=== PATIENT | female | born 1970 | race Caucasian/White ===

== ENCOUNTER 2023-10-24 08:51 | Emergency (ER) | payer BC, SELFPAY ==
--- NOTE | ~2023-10-24 | CT_ITS ---
EXAMINATION: CT HEAD WITHOUT CONTRAST CLINICAL INFORMATION: Dizziness COMPARISON: None available. TECHNIQUE: Contiguous axial imaging was performed from the skull base to vertex without intravenous administration of contrast. This CT examination was performed using dose optimization techniques as appropriate, variously including the following: *Automated exposure control *Adjustment of mA and/or kV according to patient size (this includes techniques or standardized protocols for targeted exams where dose is matched to indication/reason for exam; i.e. extremities or head) *Use of iterative reconstruction technique DLP: 638 mGy-cm FINDINGS: Ventricles, sulci and cisterns are normal. There is no midline shift, no abnormal intra- or extra- axial fluid accumulation. Mauricio and white matter differentiation is normal. Bone window images show no evidence of skull fracture. CT/CT head/brain wo IV con IMPRESSION: 1. Normal CT scan of the brain. 2. No intracranial hemorrhage or skull fracture is seen. 3. No evidence of space occupying lesion could be found. 4. The current plain CT scan of the brain shows no diagnostic evidence of acute cerebral infarction.
[2023-10-24 09:08] VITALS: BP 128/78; PULSE 74; RESP 15; TEMP 36.7; BMI 35.7
--- NOTE | 2023-10-24 09:33 | ECG_ITS ---
Test Reason : DIZZINESS Blood Pressure : / mmHG Vent. Rate : 064 BPM Atrial Rate : 064 BPM P-R Int : 138 ms QRS Dur : 076 ms QT Int : 426 ms P-R-T Axes : 001 012 023 degrees QTc Int : 439 ms Normal sinus rhythm Low voltage QRS Borderline ECG When compared with ECG of 10-MAY-2015 20:13, Vent. rate has decreased BY 55 BPM Referred By: Alisson Talavera Electronically Signed By:BRITTON TELLES MD
--- OUTSIDE RECORDS SUMMARY | 2023-10-24 09:34 | XMS_ITS | Continuity of Care Document ---
Author Organization [facility] José Antonio Thomas Address [address] [place] [address]- Care Team Providers Care Supervisor Salvage Name Role Phone Francisco ESPINOSA, Paulina Vega Primary Care Physician Encounter [facility] Date(s): 01/09/23 - 02/08/23 [facility] Adult [address] [place] [address]- Allergies, Adverse Reactions, Alerts Substance Reaction Severity Status Peanuts Active Immunizations Given and Recorded Vaccine Date Status Refusal Reason influenza virus vaccine, inactivated 01/07/22 Kun rded influenza virus vaccine, inactivated 11/29/20 Kun rded influenza virus vaccine, inactivated 01/05/20 Kun rded influenza virus vaccine, inactivated 01/11/19 Kun rded influenza virus vaccine, inactivated 01/04/18 Kun rded influenza virus vaccine, inactivated 12/28/16 Kun rded influenza virus vaccine, inactivated 03/27/14 Kun rded SARS-CoV-2 (COVID-19) mRNA BNT-162b2 vac 01/14/21 Recorded SARS-CoV-2 (COVID-19) mRNA BNT-162b2 vac 07/10/20 Recorded SARS-CoV-2 (COVID-19) mRNA BNT-162b2 vac 06/17/20 Recorded pneumococcal 23-valent vaccine 10/08/12 Recorded tetanus/diphtheria/pertussis, acel(Tdap) 10/08/12 Recorded tetanus-diphtheria toxoids (Td) 03/20/99 Recorded Medications albuterol CFC free 90 mcg/inh inhalation aerosol 2, puffs, Inhalation, 4 times a day, PRN, # 8 Gm, Refills 1, Tot. Refills 1, Maintenance, 02/01/23 10:54:00 EST, Aerosol, Route to Pharmacy Electronically, [id number], [facility], 155, cm, 02/01/23 10:48:00 EST,... Start Date: 02/01/23 Status: Ordered amLODIPine 10 mg oral tablet 10 mg, 1, tablet, By Mouth, Daily, # 90 tablet, Refills 3, Tot. Refills 3, Maintenance, 11/07/22 15:09:00 EDT, Route to Pharmacy Electronically, [facility], Partial fill upon patient request if the prescription is for a schedule II opioi... Start Date: 11/07/22 Status: Ordered Aspirin Enteric Coated 325 mg oral delayed release tablet 1 tablet = 325 mg, By Mouth, Daily, as directed take 1 tablet daily for 4 weeks. START THIS MEDICATION ON POST OP DAY 1, 0 Refills, Maintenance, 12/29/21 7:21:00 EDT, Partial fill upon patient request if the prescription is for a schedule II opioid drug. Start Date: 12/29/21 Status: Ordered Calcium And Vitamin D Combination = 600 mg, By Mouth, 2 times a day, 0 Refills, Maintenance, 12/21/21 13:39:00 EDT, Partial fill uponpatient request if the prescription is for a schedule II opioid drug. Start Date: 12/21/21 Status: Ordered escitalopram 20 mg oral tablet 1 tablet = 20 mg, By Mouth, Daily, 0 Refills, Maintenance, 11/07/22 14:13:00 EDT, Partial fill uponpatient request if the prescription is for a schedule II opioid drug. Start Date: 11/07/22 Status: Ordered gabapentin 300 mg oral capsule 300 mg, 1, capsule, By Mouth, 3 times a day, # 270 capsule, Refills 0, Maintenance, 01/24/19 4:50:20 EST Start Date: 01/24/19 Status: Ordered LaMICtal ODT 50 mg oral tablet, disintegrating 1 tablet = 50 mg, By Mouth, 2 times a day, 0 Refills, Maintenance, 01/24/19 13:21:14 EST Start Date: 01/24/19 Status: Ordered levothyroxine 0.025 mg oral tablet 1 tablet = 25 mcg, By Mouth, Daily, # 90 tablet, 3 Refills, Maintenance, 11/07/22 15:08:00 EDT, Tablet, [facility], Partial fill upon patient request if the prescription is for a schedule II opioid drug., 155, cm, 11/07/22 13:56:00 EDT,... Start Date: 11/07/22 Status: Ordered loratadine 10 mg oral tablet 10 mg, 1, tablet, By Mouth, Daily, # 90 tablet, Refills 3, Tot. Refills 3, Maintenance, 11/07/22 15:10:00 EDT, Route to Pharmacy Electronically, [facility], Partial fill upon patient request if the prescription is for a schedule II opioi... Start Date: 11/07/22 Status: Ordered Multivitamin Tablet 1 tablet, By Mouth, Daily, 0 Refills, Maintenance, 01/27/19 11:28:49 EST, Tablet Start Date: 01/27/19 Status: Ordered Naproxen = 500 mg, By Mouth, twice a day 1 TAB TWICE A DAY FOR 5 DAYS, 0 Refills, Maintenance, 12/29/21 7:21:00 EDT, Partial fill upon patient request if the prescription is for a schedule II opioid drug. Start Date: 12/29/21 Status: Ordered nicotine 2 mg oral transmucosal lozenge 1 lozenge = 2 mg, By Mouth, Every 2 hours, # 360 lozenge, 1 Refills, Maintenance, 02/01/23 10:30:00EST, [facility], Partial fill upon patient request if the prescription is for a schedule II opioid drug., 1 lozenge By Mouth Every 2 hour... Start Date: 02/01/23 Status: Ordered pantoprazole 40 mg oral delayed release tablet 1 tablet = 40 mg, By Mouth, Daily, # 90 tablet, 3 Refills, Maintenance, 11/07/22 15:10:00 EDT, EC Tablet, 155, cm, 11/07/22 13:56:00 EDT, Height, 81.5, kg, 12/29/21 6:56:00 EDT, Dry Weight Start Date: 11/07/22 Status: Ordered traZODone 50 mg oral tablet 50 mg, 1, tablet, By Mouth, Daily at bedtime, # 30 tablet, Refills 0, Maintenance, 01/24/19 4:51:05EST Start Date: 01/24/19 Status: Ordered Vitamin B12 = 1,000 mcg, By Mouth, Daily, 0 Refills, Maintenance, 02/01/23 10:01:00 EST, Partial fill upon patient request if the prescription is for a schedule II opioid drug. Start Date: 02/01/23 Status: Ordered Problem List Condition Confirmation Course Effective Dates Status H ealth Status Informant Alcohol dependence Confirmed Active Obesity (BMI 30-39.9) Confirmed Active Chronic pain Confirmed Active Ovarian cyst Confirmed Active Depression Confirmed Active GERD (gastroesophageal reflux disease) Confirmed Active Genital warts Confirmed Active History of suicidal ideation Confirmed Active Hyperlipidemia Confirmed Active Hypertension Confirmed Active Hypothyroidism Confirmed Active Major depression Confirmed Active PTSD (post-traumatic stress disorder) Confirmed Active Schizo affective schizophrenia Confirmed Active Severe obesity (BMI 35.0-39.9) with comorbidity Confirmed Active Tobacco abuse Confirmed Active Social History Social History Type Response Smoking Status 10 or more cigarette s (1/2 pack or more)/day in last 30 days; Other: 1pack per day, 40 years. 40 pack years; entered on: 12/14/22 Sex Patient Care team information Care Team Personnel Name: Paulina Singh NP Position: [facility] PCO Associate Professional Member Role: PCP Address: Address: [address] [place] [id number]- Care Team Related Persons Name: ESTEFANIA FISHMAN Name: NAV DE LA VEGA Address: home [address] [place] [id number] Name: LENO DE LA VEGA
--- OUTSIDE RECORDS SUMMARY | 2023-10-24 09:34 | XMS_ITS | Continuity of Care Document ---
Author Organization [facility] Address [address] [place] [address]- Care Team Providers Care Neckties Painter Name Role Phone Francisco ESPINOSA, Paulina Vega Primary Care Physician Encounter [facility] Date(s): 09/15/23 - 10/15/23 [facility] [address] [place] [address] Allergies, Adverse Reactions, Alerts Substance Reaction Severity [...] 10:54:00 EST, Aerosol, Route to Pharmacy Electronically, [id number], [facility], 155, cm, [...] II opioi... Start Date: 11/07/22 Status: Ordered Calcium And Vitamin D Combination [...] opioid drug. Start Date: 11/07/22 Status: Ordered fluticasone 50 mcg/inh nasal spray 1 sprays = 50 mcg, Nares, Both, Daily in AM, 0 Refills, Maintenance, 02/17/23 13:26:00 EST, [place], Partial fill upon patient request if the prescription is for a schedule II opioid drug. Start Date: 02/17/23 Status: Ordered LaMICtal ODT 50 mg oral tablet, disintegrating 1 tablet = 50 mg, By Mouth, 2 times a day, 0 Refills, Maintenance, 01/24/19 13:21:14 EST Start Date: 01/24/19 Status: Ordered levothyroxine 0.025 mg oral tablet 1 tablet = 25 mcg, By Mouth, Daily, # 90 tablet, 3 Refills, Maintenance, 11/07/22 15:08:00 EDT, Tablet, [facility], Partial fill [...] II opioi... Start Date: 11/07/22 Status: Ordered Mask Rx (reliable respiratory) Mask Rx (reliable respiratory), See Instructions, # 1 each, Refills 11, Tot. Refills 11, Maintenance, DreamWear Nasal Mask FitPack with Headgear - [facility] [employer] dx: NENA G47.33, 09/26/23 12:38:00 EDT, Supply Start Date: 09/26/23 Status: Ordered Multivitamin Tablet 1 tablet, By Mouth, Daily, 0 Refills, Maintenance, 01/27/19 11:28:49 EST, Tablet Start Date: 01/27/19 Status: Ordered pantoprazole 40 mg oral delayed [...] 01/24/19 4:51:05EST Start Date: 01/24/19 Status: Ordered triamcinolone 0.1% topical cream See Instructions, Apply to left ear and below left eye two times a day andd then wash hands., # 30 Gm, 0 Refills, Maintenance, 10/05/23 8:52:00 EDT, [facility], Partial fill upon patient request if the prescription is for a schedule II o... Start Date: 10/05/23 Status: Ordered Vitamin B12 = 1,000 mcg, [...] (1/2 pack or more)/day in last 30 days entered on: 02/17/23 Sex Patient Care team information Care Team Personnel Name: Paulina Singh NP Position: S PCO Associate Professional Member Role: PCP Address: Address: [address] [place] [address]- Care Team Related Persons Name: ESTEFANIA FISHMAN Address: home [address] [place] [address] Name: NAV DE LA VEGA Address: home [address] [place] [address] Name: LENO DE LA VEGA
--- OUTSIDE RECORDS SUMMARY | 2023-10-24 09:34 | XMS_ITS | Continuity of Care Document ---
Author Organization [facility] José Antonio Thomas lt Address [address] [place] [address]- Care Team Providers Care Legal Job Titles Name Role Phone Francisco ESPINOSA, Paulina Vega Primary Care Physician Encounter [facility] Date(s): 11/07/22 - 11/14/22 [facility] [place] Adult [address] [place] [address]- Attending Physician: Paulina Singh NP Referring Physician: Alli ACE, Samuel Martínez Allergies, Adverse Reactions, Alerts Substance Reaction Severity [...] Recorded tetanus-diphtheria toxoids (Td) 03/20/99 Recorded Medications amLODIPine 10 mg oral tablet 10 mg, 1, tablet, By Mouth, Daily, # 90 tablet, Refills 3, Tot. Refills 3, Maintenance, 11/07/22 15:09:00 EDT, Route to Pharmacy Electronically, [email or web address], Partial fill upon patient request [...] opioid drug. Start Date: 12/29/21 Status: Ordered pantoprazole 40 mg oral delayed [...] 01/24/19 4:51:05EST Start Date: 01/24/19 Status: Ordered Problem List Condition Confirmation Course Effective Dates Status Health St atus Informant Alcohol dependence Confirmed Active Chronic pain Confirmed Active Depression Confirmed Active GERD (gastroesophageal reflux disease) Confirmed Active Hypertension Confirmed Active Severe obesity (BMI 35.0-39.9) with comorbidity Confirmed Active Vital Signs Most recent to oldest [Reference Range]: 1 Height 155 cm (11/07/22 1:56 PM) Weight 87.2 kg (11/07/22 1:56 PM) Oxygen Saturation [94-100 %] 98 % (11/07/22 1:56 PM) Pulse Rate [55-90 bpm] 86 bpm (11/07/22 1:56 PM) Body Mass Index [18.5-24.99 kg/m2] 36.3 kg/m2 *>HHI* (11/07/22 1:56 PM) Blood Pressure [90-138/55-84 mm Hg] 106/ 71mm Hg (11/07/22 1:56 PM) Mode of Delivery (Oxygen) Room air (11/07/22 1:56 PM) Blood pressure sites Arm, left (11/07/22 1:56 PM) Social History Social History Type Response Smoking Status 10 or more cigarette s (1/2 pack or more)/day in last 30 days entered on: 01/25/19 Sex Patient Care team information Care Team Personnel Name: Francisco ESPINOSA, Paulina Vega Position: [facility] PCO Associate Professional Member Role: PCP Address: Address: [address] [place] [address]- Care Team Related Persons Name: ESTEFANIA FISHMAN Name: NAV DE LA VEGA Address: home [address] [place] [address] Name: LENO DE LA VEGA
--- OUTSIDE RECORDS SUMMARY | 2023-10-24 09:34 | XMS_ITS | Continuity of Care Document ---
Author Organization [facility] Evaristo Chou Thomas lt Address [address] [place] [address]- Care Team Providers Care Veneer Stock Layer Name Role Phone Francisco ESPINOSA, Paulina Vega Primary Care Physician [phone] Encounter [facility] [place] Date(s): 10/05/23 - 10/12/23 [facility] Evaristo Eidley Adult [address] [place] [address]- Attending Physician: Vaibhav Mon MD Referring Physician: Paulina Singh NP Allergies, Adverse Reactions, Alerts Substance Reaction Severity [...] 10:54:00 EST, Aerosol, Route to Pharmacy Electronically, [id number], [facility], 155, cm, [...] AM, 0 Refills, Maintenance, 02/17/23 13:26:00 EST, [place], Partial fill upon patient request if the [...] comorbidity Confirmed Active Tobacco abuse Confirmed Active Vital Signs Most recent to oldest [Reference Range]: 1 Height 155 cm (10/05/23 8:29 AM) Weight 89.2 kg (10/05/23 8:29 AM) Oxygen Saturation [94-100 %] 97 % (10/05/23 8:29 AM) Pulse Rate [55-90 bpm] 98 bpm *H* (10/05/23 8:29 AM) Body Mass Index [18.5-24.99 kg/m2] 37.13 kg/m2 *>HHI* (10/05/23 8:29 AM) Blood Pressure [90-138/55-84 mm Hg] 123/ 73mm Hg (10/05/23 8:29 AM) Temperature [96.8-100.4 DegF] 98.1 DegF (10/05/23 8:29 AM) Blood pressure sites Arm, left (10/05/23 8:29 AM) Temperature Route Oral (10/05/23 8:29 AM) Weight Obtained Via Standing scale (10/05/23 8:29 AM) Social History Social History Type Response Smoking Status 10 or more cigarette s (1/2 pack or more)/day in last 30 days entered on: 02/17/23 Sex Note * Clara Kessler: PERFORM Event Display: Patient Education/Instruction Authored Date: [id number] Ambulatory Adult Visit Summary [facility] [place] [facility] [address] [place], [place] [id number] Name: MARIO DE LA VEGA : 1970?? Visit: 10/05/2023 08:17?? Ambulatory Visit Instructions ?? Your Care Team Primary Care Provider Francisco ESPINOSA, Paulina Vega? This Visit Provider Vaibhav Mon MD Your Diagnosis Blepharitis Vitals Signs Temperature: 98.1 DegF Height: 155 cm Pulse Rate:??98 bpm??High Weight: 89.2 kg Systolic Blood Pressure: 123 mm Hg Body Mass Index:??37.13 kg/m2??Critical Diastolic Blood Pressure: 73 mm Hg Body surface area: 1.96 Oxygen Saturation: 97 % ?? What to do next Scheduled Follow-Up Appointments Monday 3:20 PM EDT ?? With: Lexi ACE, Bryon Valdez Where: [facility] [address] [place] [address]- Status: Pending Medications The list below reflects the information in our records and provided by you today along with any changes made during this visit. Please continue your medications until treatment is completed or stopped by your provider. If this is different from the information you have or there are other questions,please contact the prescribing provider. What How Much When Why Instructions New Triamcinolone Topical (triamcinolone 0.1% topical cream) See instructions Apply to left ear and below left eye two times a day andd then wash hands. ?? Pickup at [facility] Changed Durable Medical Equipment (Mask Rx (reliable respiratory)) See instructions DreamWear Nasal Mask FitPack with Headgear - [facility] dx: NENA G47.33 ?? Unchanged Albuterol (albuterol CFC free 90 mcg/ inh inhalation aerosol) 2 puff(s) Inhalation 4 times a day as needed for as needed for wheezing Unchanged Amlodipine (amLODIPine 10 mg oral tablet) 1 tab(s) Oral Daily Hypertension Unchanged Calcium And Vitamin D Combination 600 Milligram Oral Twice a day Unchanged Cyanocobalamin (Vitamin B12) 1,000 Microgram Oral Daily Unchanged Escitalopram (escitalopram 20 mg oral tablet) 1 tab(s) Oral Daily Unchanged Fluticasone Nasal (fluticasone 50 mcg/ inh nasal spray) 1 spray(s) Nares, Both Daily in the morning Unchanged Lamotrigine (LaMICtal ODT 50 mg oral tablet, disintegrating) 1 tab(s) Oral Twice a day Unchanged Levothyroxine (levothyroxine 0.025 mg oral tablet) 1 tab(s) Oral Daily Hypothyroidism Unchanged Loratadine (loratadine 10 mg oral tablet) 1 tab(s) Oral Daily Unchanged Multivitamin (Multivitamin Tablet) 1 tab(s) Oral Daily Unchanged Pantoprazole (pantoprazole 40 mg oral delayed release tablet) 1 tab(s) Oral Daily GERD without esophagitis Unchanged Trazodone (traZODone 50 mg oral tablet) 1 tab(s) Oral Daily at Bedtime Pharmacy Information [facility]: [address] [place], [place] [id number] [phone] ?? What How Much When Comments Stop Taking Aspirin (Aspirin Enteric Coated 325 mg oral delayed release tablet) 1 tab(s) Oral Daily as directed take 1 tablet daily for 4 weeks. START THIS MEDICATION ON POST OP DAY 1 ?? Stop Taking Gabapentin (gabapentin 300 mg oral capsule) 1 capsule Oral 3 times a day Stop Taking Nicotine (nicotine 2 mg oral transmucosal lozenge) 1 lozenge(s) Oral Every 2 hours Medications and Immunizations Administered Medications Given During Visit No medications given during this visit.?? Allergies (NKA means No Known Allergies) Peanuts Common Emergency Awareness Tips IS IT A STROKE? Act FAST and Check for these signs: FACE Does the face look uneven? ARM Does one arm drift down? SPEECH Does their speech sound strange? TIME Call at any sign of stroke ?? Heart Attack Signs Chest discomfort: Most heart attacks involve discomfort in the center of the chest and lasts more than a few minutes, or goes away and comes back. It can feel like uncomfortable pressure, squeezing, fullness or pain. Discomfort in upper body: Symptoms can include pain or discomfort in one or both arms, back, neck, jaw or stomach. Shortness of breath: With or without discomfort. Other signs: Breaking out in a cold sweat, nausea, or lightheaded. Remember, MINUTES DO MATTER. If you experience any of these heart attack warning signs, call to get immediate medical attention! ?? Smoking can increase your chances of developing chronic health problems and can cause harmful effects to other family members in your house. If you smoke, you are strongly encouraged to quit. Please call [facility] at [phone] or [phone] ([phone]) or log in to [email or web address] for referrals to smoking cessation programs. ?? The National Suicide Prevention Hotline is available 10/10 if you or someone you know needs to find a reason to keep living. By calling 3-626-361-mucz (1772) you'll be connected to a skilled, trained counselor at a crisis center in your area. [facility] Portal You can view and manage your care through the patient portal or by using a health care teja of your choosing. [employer] is a website that allows you to securely view your medical information including your hospital discharge summary, office visit summaries, medications and follow-up visits. You can also request appointments, renew medications, and request access to your medical information using a health care teja of your choosing, or just ask a question. You can enroll at [email or web address] or register during your next office visit. [facility], in keeping with [facility] guidance, no longer requires face masks for staff, patientsor visitors in most situations. Similiar to time spent indoors at other locations, there is the chance that you were exposed to repiratory viruses during your time with us (such as flu or COVID-19). If you develop symptoms concerning for a viral respiratory infection, please seek testing (and treatment if indicated) from your medical provider or home test kit. ?? Disclaimer: The information provided is of a general nature and is intended to be used in conjunction with the recommendations and advice of your health care practitioner. Every effort has been made to ensure that the information provided is accurate and complete at the time it is provided to you however, as your needs change, or, as new information becomes available, different or additional instructions may be required. ?? If you have questions, please consult with your primary care provider or pharmacist, as appropriate. This information is not intended to serve as substitution for assessment and evaluation by a qualified health care provider. If you do not have a primary care provider, you may find a [facility] provider by calling [facility] Link at [phone]. Patient Care team information Care Team Personnel Name: Paulina Singh NP Position: S PCO Associate Professional Member Role: PCP Address: Address: [address] [place] [phone]- [place] Care Team Related Persons Name: ESTEFANIA FISHMAN Address: home [address] [place] [address] Name: NAV DE LA VEGA Address: home [address] [place] [address] Name: LENO DE LA VEGA
--- OUTSIDE RECORDS SUMMARY | 2023-10-24 09:34 | XMS_ITS | Continuity of Care Document ---
Author Organization [facility] Flomot Thomas lt Address [address] [place] [address]- Care Team Providers Care Daycare Teacher Name Role Phone Francisco ESPINOSA, Paulina Vega Primary Care Physician [phone] Encounter [facility] [place] Date(s): 03/23/23 - 04/22/23 [facility] Adult [address] [place] [address]- Allergies, Adverse Reactions, Alerts Substance Reaction Severity [...] 10:54:00 EST, Aerosol, Route to Pharmacy Electronically, [id number], [facility], 155, cm, [...] AM, 0 Refills, Maintenance, 02/17/23 13:26:00 EST, [place], Partial fill upon patient request if the prescription is for a schedule II opioid drug. Start Date: 02/17/23 Status: Ordered gabapentin 300 mg oral capsule [...] EST, Tablet Start Date: 01/27/19 Status: Ordered nicotine 2 mg oral transmucosal lozenge 1 lozenge = 2 mg, By Mouth, Every 2 hours, # 360 lozenge, 1 Refills, Maintenance, 02/01/23 10:30:00EST, [facility], Partial fill [...] Team Personnel Name: Paulina Singh NP Position: [facility] PCO Associate Professional Member Role: PCP Address: Address: [address] [place] [address]- Care Team Related Persons Name: ESTEFANIA FISHMAN Name: NAV DE LA VEGA Address: home [address] [place] [address] Name: LENO DE LA VEGA
--- OUTSIDE RECORDS SUMMARY | 2023-10-24 09:34 | XMS_ITS | Continuity of Care Document ---
Author Organization [facility] José nAtonio Thomas lt Address [address] [place] [address]- Care Team Providers Care Glue Cook Name Role Phone Francisco ESPINOSA, Paulina Vega Primary Care Physician [place] [facility] [place] 07[place]23 [facility] Adult [address] [place] [address]- Allergies, Adverse Reactions, Alerts Substance Reaction Severity [...] 10:54:00 EST, Aerosol, Route to Pharmacy Electronically, [id number], [facility], 155, cm, [...] opioid drug. Start Date: 12/21/21 Status: Ordered CPAP Machine See Instructions, # 1 each, Refills 11, Tot. Refills 11, Maintenance, E0601 AutoCPAP 10 to 20 cm H20 with compliance data A4604 Heated Tubing/Climate line or A7037 Tubing A7038 or A7039 Filters N0042Apsp strap A7046 Humidifier Chamber A703... Start Date: 07/25/23 Status: Ordered escitalopram 20 mg oral tablet 1 tablet = 20 mg, By Mouth, Daily, 0 Refills, Maintenance, 11/07/22 14:13:00 EDT, Partial fill uponpatient request if the prescription is for a schedule II opioid drug. Start Date: 11/07/22 Status: Ordered fluticasone 50 mcg/inh nasal spray 1 sprays = 50 mcg, Nares, Both, Daily in AM, 0 Refills, Maintenance, 02/17/23 13:26:00 EST, [place], Partial fill upon patient request if the [...] Associate Professional Member Role: PCP Address: Address: [address] [place] [address]- Care Team Related Persons Name: ESTEFANIA FISHMAN Address: home [address] [place] [address] Name: NAV DE LA VEGA Address: home [address] [place] [address] Name: LENO DE LA VEGA
--- OUTSIDE RECORDS SUMMARY | 2023-10-24 09:34 | XMS_ITS | Continuity of Care Document ---
Author Organization [facility] José Antonio Thomas Address [address] [place] [address]- Care Team Providers Care Ware Carrier Name Role Phone Francisco ESPINOSA, Paulina Vega Primary Care Physician [place] [facility] [place] 11/[place]/22 [facility] Adult [address] [place] [address]- Allergies, Adverse Reactions, Alerts Substance Reaction Severity [...] obesity (BMI 35.0-39.9) with comorbidity Confirmed Active Social History Social History Type Response Smoking Status 10 or more cigarette s (1/2 pack or more)/day in last 30 days entered on: 01/25/19 Sex Patient Care team information Care Team Personnel Name: Paulina Singh NP Position: S PCO Associate Professional Member Role: PCP Address: Address: [address] [place] [address]- Care Team Related Persons Name: ESTEFANIA FISHMAN Name: NAV DE LA VEGA Address: home [address] [place] [address] Name: LENO DE LA VEGA
--- OUTSIDE RECORDS SUMMARY | 2023-10-24 09:34 | XMS_ITS | Continuity of Care Document ---
Author Organization [facility] Address [address] [place] [address]- Care Team Providers Care Call Center Manager Name Role Phone Paulina Singh NP Primary Care Physician [phone] Encounter [facility] [place] Date(s): 04/18/23 - 05/18/[address] [address] Allergies, Adverse Reactions, Alerts Substance Reaction [...] 10:54:00 EST, Aerosol, Route to Pharmacy Electronically, [id number], [facility], 155, cm, [...] AM, 0 Refills, Maintenance, 02/17/23 13:26:00 EST, [place], Partial fill upon patient request if the [...] Personnel Name: Francisco ESPINOSA, Paulina Vega Position: [facility] PCO Associate Professional Member Role: PCP Address: Address: [address] [place] [address]- Care Team Related Persons Name: ESTEFANIA FISHMAN Name: NAV DE LA VEGA Address: home [address] [place] [address] Name: LENO DE LA VEGA
--- OUTSIDE RECORDS SUMMARY | 2023-10-24 09:34 | XMS_ITS | Continuity of Care Document ---
Author Organization [facility] Address [address] [place] [address] [place] [address]- Care Team Providers Care Farmworkers Name Role Phone Francisco JESÚS, Paulina Vega Primary Care Physician En[place] [facility] [place] Date(s): 02/01/23 - 03/03/23 [facility] [address] [place] [address] [place] [id number] Attending Physician: Admtr, Ar8 Admitting Physician: Admtr, Ar8 Referring Physician: Admtr, Ar8 Allergies, Adverse Reactions, Alerts Substance Reaction Severity [...] 10:54:00 EST, Aerosol, Route to Pharmacy Electronically, [id number], [facility], 155, cm, 02/01/23 10:48:00 EST,... Start Date: 02/01/23 Status: Ordered amLODIPine 10 mg oral tablet 10 mg, 1, tablet, By Mouth, Daily, # 90 tablet, Refills 3, Tot. Refills 3, Maintenance, 11/07/22 15:09:00 EDT, Route to Pharmacy Electronically, [facility], Partial fill upon patient request [...] AM, 0 Refills, Maintenance, 02/17/23 13:26:00 EST, [place], Partial fill upon patient request if the [...] Team Personnel Name: Paulina Singh NP Position: [facility] PCO Associate Professional Member Role: PCP Address: Address: [address] [place] [address]- Care Team Related Persons Name: ESTEFANIA FISHMAN Name: NAV DE LA VEGA Address: home [address] [place] [address] Name: LENO DE LA VEGA
--- OUTSIDE RECORDS SUMMARY | 2023-10-24 09:34 | XMS_ITS | Continuity of Care Document ---
Author Organization [facility] Address [address] [place] [address]- Care Team Providers Care Studio Sales Associate Name Role Phone Paulina Singh NP Primary Care Physician [phone] Encounter [facility] Date(s): 01/11/23 - 03/23/23 [facility] [address] [place] [address] Attending Physician: Lianne Mcgregor MD, Yves Philip Admitting Physician: Yves Cuevas MD Referring Physician: Paulina Singh NP Allergies, [...] 10:54:00 EST, Aerosol, Route to Pharmacy Electronically, [id number], [facility], 155, cm, [...] AM, 0 Refills, Maintenance, 02/17/23 13:26:00 EST, [place], Partial fill upon patient request if the [...] Team Personnel Name: Paulina Singh NP Position: [facility] PCO Associate Professional Member Role: PCP Address: Address: [address] [place] [address]- Care Team Related Persons Name: ESTEFANIA FISHMAN Name: NAV DE LA VEGA Address: home [address] [place] [address] Name: LENO DE LA VEGA
--- OUTSIDE RECORDS SUMMARY | 2023-10-24 09:34 | XMS_ITS | Continuity of Care Document ---
Author Organization [facility] Address [address] [place] [address]- Care Team Providers Care Camera Assembler Name Role Phone Francisco ESPINOSA, Paulina Vega Primary Care Physician [place] [facility] [place] 02/08/23 [facility] Adult [address] [place] [address]- Allergies, Adverse Reactions, Alerts Substance Reaction Severity [...] 10:54:00 EST, Aerosol, Route to Pharmacy Electronically, [id number], [facility], 155, cm, [...] Maintenance, 11/07/22 15:08:00 EDT, Tablet, [facility], Partial fill upon patient request if the prescription is for a schedule II opioid drug., 155, cm, 11/07/22 13:56:00 EDT,... Start Date: 11/07/22 Status: Ordered loratadine 10 mg oral tablet 10 mg, 1, tablet, By Mouth, Daily, # 90 tablet, Refills 3, Tot. Refills 3, Maintenance, 11/07/22 15:10:00 EDT, Route to Pharmacy Electronically, [facility], Partial fill upon patient request [...] 1 Refills, Maintenance, 02/01/23 10:30:00EST, [facility], Partial fill upon patient request [...] Team Personnel Name: Paulina Singh NP Position: [facility] PCO Associate Professional Member Role: PCP Address: Address: [address] [place] [address]- Care Team Related Persons Name: ESTEFANIA FISHMAN Name: NAV DE LA VEGA Address: home [address] [place] [address] Name: LENO DE LA VEGA
--- OUTSIDE RECORDS SUMMARY | 2023-10-24 09:34 | XMS_ITS | Continuity of Care Document ---
Author Organization [facility] Address [address] [place] [address]- Care Team Providers Care Wringer Machine Operator Name Role Phone Francisco ESPINOSA, Paulina Gary Primary Care Physician [place] [facility] [place] [id number] Date(s): 02/17/23 - 02/24/23 [facility] [address] [place], [place] [address] Attending Physician: Lj ACE, Wesley Kent Referring Physician: Santana ACE, Dorian Mckeon Allergies, Adverse Reactions, Alerts Substance Reaction Severity [...] 10:54:00 EST, Aerosol, Route to Pharmacy Electronically, [id number], [facility], 155, cm, [...] AM, 0 Refills, Maintenance, 02/17/23 13:26:00 EST, [place], Partial fill upon patient request if the [...] comorbidity Confirmed Active Tobacco abuse Confirmed Active Procedures Procedure Date Related Diagnosis Body Site Status Right Arthroscopy of knee joint Completed Vital Signs Most recent to oldest [Reference Range]: 1 Height 155 cm (02/17/23 1:14 PM) Weight 89.2 kg (02/17/23 1:14 PM) Oxygen Saturation [94-100 %] 97 % (02/17/23 1:14 PM) Pulse Rate [55-90 bpm] 83 bpm (02/17/23 1:14 PM) Body Mass Index [18.5-24.99 kg/m2] 37.13 kg/m2 *>HHI* (02/17/23 1:14 PM) Blood Pressure [90-138/55-84 mm Hg] 129/ 74mm Hg (02/17/23 1:14 PM) Respiratory Rate [16-30 br/min] 16 br/mi n (02/17/23 1:14 PM) Mode of Delivery (Oxygen) Room air (02/17/23 1:14 PM) Blood pressure sites Arm, right (02/17/23 1:14 PM) Dry Weight 89.2 kg (02/17/23 1:14 PM) Weight Obtained Via Standing scale (02/17/23 1:14 PM) Dry Weight Obtained Via Standing scale (02/17/23 1:14 PM) Social History Social History Type Response Smoking Status 10 or more cigarette s (1/2 pack or more)/day in last 30 days entered on: 02/17/23 Sex EKG study * Event Display: ECG 12-Lead Authored Date: Please click on pdf link to open report * Event Display: ECG 12-Lead Authored Date: Ventricular Rate: 77 BPM Atrial Rate: 77 BPM P-R Interval: 140 ms QRS Duration: 88 ms Q-T Interval: 392 ms QTC Calculation(Bazett): 443 ms P Fortson: -2 degrees R Fortson: 16 degrees T Fortson: 21 degrees Normal sinus rhythm Normal ECG When compared with ECG of 07-DEC-2021 15:23, Minimal criteria for Anterior infarct are no longer Present Confirmed by ANNALISE ARAIZA MD ([id number]) on 02/19/2023 7:45:33 AM [place]: ANNALISE ARAIZA MD Patient Care team information Care Team Personnel Name: Paulina Singh NP Position: S PCO Associate Professional Member Role: PCP Address: Address: [address] [place] [address]- Care Team Related Persons Name: ESTEFANIA FISHMAN Name: NAV DE LA VEGA Address: home [address] [place] [address] Name: LENO DE LA VEGA
--- OUTSIDE RECORDS SUMMARY | 2023-10-24 09:34 | XMS_ITS | Continuity of Care Document ---
Author Organization [facility] Address [address] [place] [address]- Care Team Providers Care Regional Marketing Director Name Role Phone Paulina Singh NP Primary Care Physician Encounter [facility] Date(s): 04/25/23 - 05/25/[address] [address] Attending Physician: Faisal Cr Admitting Physician: AdmtrFaisal Referring Physician: Admtr ArTamika Allergies, Adverse Reactions, Alerts Substance Reaction Severity [...] 10:54:00 EST, Aerosol, Route to Pharmacy Electronically, [id number], [facility], 155, cm, [...] AM, 0 Refills, Maintenance, 02/17/23 13:26:00 EST, [place], Partial fill upon patient request if the [...] last 30 days entered on: 02/17/23 Sex Laboratory * Event Display: SCRAP SORTER Pap Test Authored Date: Radiology * Event Display: MRI Lower Extremity, Non- BH Authored Date: * Event Display: Ultrasound Lower Extremity, Non-BH Authored Date: * Event Display: X-Ray Hand/Wrist, Non- BH Authored Date: * Event Display: X-Ray Knee, Non- BH Authored Date: * Event Display: X-Ray Pelvis, Non- BH Authored Date: * Event Display: Ultrasound Breast, Non-BH Authored Date: * Event Display: X-Ray Spine, Non- BH Authored Date: * Event Display: Ultrasound Pelvis, Non-BH Authored Date: * Event Display: CT Scan Neck, Non- BH Authored Date: * Event Display: Bone Density Authored Date: Note * Janeth Carreon: PERFORM, SIGN, VERIFY Event Display: Patient Education/Instruction Authored Date: [id number] [facility] Occupational Therapy Asst Clinical Summary Person Information Name MARIO DE LA VEGA Age 42 Years 1970 12:00 AM PCP Adore ACE , Angel Wilson PCP Reason for Visit: Allergy Info: Peanuts Vital Signs Height Weight BMI Blood Pressure / Temperature Pulse Rate Respiratory Rate 02 Sat Mode of Delivery / Medication Information BuPROpion (Wellbutrin) , Oral, Refills: 0 Citalopram (Celexa) , Oral, Daily, Refills: 0 Omeprazole (Prilosec OTC) 20 mg, Oral, Daily, Refills: 0 Trazodone , Oral, Refills: 0 Problem List Date Problem If the following labs have been performed in the last year, the most recent result is displayed below. Diagnostic Results Lab Result Value Date Lead Hemoglobin A1C LDL HDL Triglycerides Total Cholesterol Disclaimer: The information provided is of a [...] different or additional instructions may be required. If you have questions, please consult with your primary care provider or pharmacist, as appropriate. This information is not intended to serve as substitution for assessment and evaluation by a qualified health care provider. If you do not have a primary care provider, you may find a [facility] provider by calling [facility] at [phone]. Patient Education Information Follow-up Details: Patient Education Material: 56661 Colposcopy Colposcopy is a procedure that gives your healthcare provider a magnified view of the cervix. It isdone using a lighted microscope called a colposcope. In most cases, a sample of cervical cells is taken during a biopsy. The sample can then be studied in a lab. If any problems are found, you and your healthcare provider will discuss treatment options. It usually takes less than 30 minutes, and you can often go back to your normal routine right away. Reasons for the Procedure Colposcopy is usually done as a follow-up exam to help find the cause of an abnormal Pap test. Abnormal Pap tests are often due to an HPV (human papilloma virus) infection. HPV is a large family of viruses. HPV can cause genital warts. It can also cause changes in cervical cells. Colposcopy is alsoused to assess other problems. These include pain or bleeding during sexual intercourse, or a lesion on the vulva or vagina. What Are the Risks? Problems after colposcopy are very rare, but can include: ??? Bleeding (if a biopsy is done) ??? Infection Getting Ready for the Procedure Colposcopy is normally done in your healthcare provider???s office. It will be scheduled for a timewhen you???re not having your menstrual period. You may be asked to sign a form giving your consentto have the procedure. A day or two before the procedure, your healthcare provider may also ask youto: ??? Avoid sexual intercourse. ??? Stop using tampons. ??? Avoid using creams or other vaginal medications. ??? Avoid douching. ??? Take zjtr-jrp-jtwchxd pain medications an hour or two before the procedure. During Colposcopy ??? You will be asked to lie on an exam table with your knees bent, just as you do for a Pap test. ??? An instrument called a speculum is inserted into the vagina to hold it open. ??? A vinegar solution is applied to the cervix to make the cells easier to see. You may feel pressure or a slight burning for a few moments. In some cases, the cervix may be numbed first with an anesthetic. ??? The cervix is viewed through the colposcope, which is placed outside the vagina. ??? If your healthcare provider sees abnormal areas on the cervix, a biopsy will be done. The tissue sample is sent to a lab for study. ??? You may feel slight pinching or cramping during the biopsy. Medication may be applied to the biopsy site to stop bleeding. After the Procedure ??? If you feel lightheaded or dizzy, you can rest on the table until you???re ready to get dressed. ??? If a biopsy was done, you may have mild cramping or light bleeding for a few days. You may alsohave discharge from the medication used to stop bleeding at the biopsy site. ??? Use pads, not tampons, for at least the first 24 hours. ??? If you have any discomfort, cgon-dxl-kjtoomq pain medication can provide relief. ??? Ask your healthcare provider when you can resume sexual intercourse. Follow-Up If a biopsy was done, your healthcare provider will get the lab report in a week or two. You and your healthcare provider can then discuss the results. In some cases, you may be scheduled for furthertests or treatment. Be sure to keep follow-up appointments with your healthcare provider. Call your healthcare provider if you have: ??? Heavy vaginal bleeding (more than a pad an hour for 2 hours). ??? Severe or increasing pelvic pain. ??? A fever over 101??F. ??? Foul-smelling or unusual vaginal discharge. ?? 7271-7794 [place] [address]. All rights reserved. This information is not intended as a substitute for professional medical care. Always follow your healthcare professional's instructions. [address] HPV and Genital Warts: Understanding Your Diagnosis HPV (human papillomavirus) is the virus that causes genital warts. If you have HPV, you???re not alone. Millions of people carry this virus. Finding out you have HPV may be upsetting for you and yourpartner. But learning about HPV and its treatments can make you both feel better. Then you can go on with your lives together. Accepting Your Diagnosis At first, it may be hard to respond to what you???ve learned. Take time to let everything sink in. Here are some things to think about: ??? How your body looks. Remember that genital warts can be removed. You may feel better if you share any concerns about your body with your partner. ??? Long-term health issues. Some strains of HPV are linked with cervical and other cancers. But most people with HPV do not develop cancer. Taking care of yourself and seeing your healthcare provider as directed reduces the cancer risk even more. ??? Protecting your partner. Being honest about HPV will protect your partner???s health. You and your partner can take steps to keep HPV from spreading. If you???re with someone new, talk about HPV before you have sex. Talking to Your Partner When you???re ready, talk to your partner about your diagnosis. ??? If you???re calm, your partner may find it easier to stay calm. Remember, HPV can take months or years to produce warts. It???s nearly impossible to know who was infected first. Try not to blame each other. ??? Suggest that your partner get checked. Even if no warts are present, visiting a healthcare provider may make your partner feel better. ??? When you both feel ready, it???s okay to have sex. It???s safest to use a latex condom every time. But know that condoms and other barriers only protect the skin they cover. Warts are contagious,so avoid touching them. (This includes oral sex.) ??? If you???re in a committed relationship and are not currently using condoms, discuss whether you want to change your habits. Remember that condoms are the only effective way to protect against many diseases. Suggest that your partner ask his or her healthcare provider about the HPV vaccine. And ask your own healthcare provider whether this vaccine is right for you. ?? 5539-8135 [facility], [address] [place] [address], [place] [address]. All rights reserved. This information is not intended as a substitute for professional medical care. Always follow your healthcare professional's instructions. Patient Care team information Care Team Personnel Name: Paulina Singh NP Position: [facility] PCO Associate Professional Member Role: PCP Address: Address: [address] [place] [address]- Care Team Related Persons Name: ESTEFANIA FISHMAN Name: NAV DE LA VEGA Address: home [address] [place] [address] Name: LENO DE LA VEGA
--- OUTSIDE RECORDS SUMMARY | 2023-10-24 09:34 | XMS_ITS | Continuity of Care Document ---
Author Organization [facility] ter Address [address] [place] [address]- Care Team Providers Care Pattern Technician Name Role Phone Amy Rayo MD Primary Care Physician [place] [facility] Date([place] 02/24/20 - 02/24/[address] [address]- Encounter Diagnosis Fracture, nasal(Final) - 02/24/20 Discharge Disposition: A-D/C Home Attending Physician: Gregory Dave MD Admitting Physician: Gregory Dave MD Referring Physician: Not on Staff, Referring MD Allergies, Adverse Reactions, Alerts Substance Reaction Severity Status Peanuts Active Medications acamprosate 333 mg oral delayed release tablet = 333 mg, By Mouth, 3 times a day with meals, # 90 tablet, 0 Refills, Maintenance, 01/27/19 11:28:39 EST, Tablet Start Date: 01/27/19 Stop Date: 02/26/19 Status: Ordered amLODIPine 10 mg oral tablet 10 mg, 1, tablet, By Mouth, Daily, # 30 tablet, Refills 0, Maintenance, 01/24/19 4:51:13 EST Start Date: 01/24/19 Status: Ordered gabapentin 300 mg oral capsule 300 mg, 1, capsule, By Mouth, 3 times a day, # 270 capsule, Refills 0, Maintenance, 01/24/19 4:50:20 EST Start Date: 01/24/19 Status: Ordered LaMICtal ODT 50 mg oral tablet, disintegrating 1 tablet = 50 mg, By Mouth, 2 times a day, 0 Refills, Maintenance, 01/24/19 13:21:14 EST Start Date: 01/24/19 Status: Ordered Lexapro 10 mg oral tablet = 15 mg, By Mouth, Daily, 0 Refills, Maintenance, 01/27/19 11:28:07 EST, Tablet Start Date: 01/27/19 Status: Ordered loratadine 10 mg oral tablet 10 mg, 1, tablet, By Mouth, Daily, # 30 tablet, Refills 0, Maintenance, 01/24/19 4:51:55 EST Start Date: 01/24/19 Status: Ordered Multivitamin Tablet 1 tablet, By Mouth, Daily, 0 Refills, Maintenance, 01/27/19 11:28:49 EST, Tablet Start Date: 01/27/19 Status: Ordered pantoprazole 40 mg oral delayed release tablet 1 tablet = 40 mg, By Mouth, Daily, # 30 tablet, 0 Refills, Maintenance, 01/24/19 4:50:30 EST, EC Tablet Start Date: 01/24/19 Status: Ordered Prilosec OTC = 20 mg, By Mouth, Daily, 0 Refills, Maintenance Start Date: 08/17/10 Status: Ordered spironolactone 100 mg oral tablet 100 mg, 1, tablet, By Mouth, Daily, # 30 tablet, Refills 0, Maintenance, 01/24/19 4:51:24 EST Start Date: 01/24/19 Status: Ordered traZODone 50 mg oral tablet 50 mg, 1, tablet, By Mouth, Daily at bedtime, # 30 tablet, Refills 0, Maintenance, 01/24/19 4:51:05EST Start Date: 01/24/19 Status: Ordered Problem List Condition Effective Dates Status Health Status Inform ant Alcohol dependence(Confirmed) Active Chronic pain(Confirmed) Active Depression(Confirmed) Active GERD (gastroesophageal reflu x disease)(Confirmed) Active Hypertension(Confirmed) Active Vital Signs Most recent to oldest [Reference Range]: 1 2 Oxygen Saturation [94-100 %] 100 % (02/24/20 2:11 PM) 100 % (02/24/20 11:38 AM) Pulse Rate [55-90 bpm] 86 bpm (02/24/20 2:11 PM) 81 bpm (02/24/20 11:38 AM) Blood Pressure [90-138/55-84 mm Hg] 126/ 82mm Hg (02/24/20 2:11 PM) 121/73mm Hg (02/24/20 11:38 AM) Respiratory Rate [16-30 br/min] 18 br/mi n (02/24/20 2:11 PM) 18 br/min (02/24/20 11:38 AM) Temperature [96.8-100.4 DegF] 97.8 DegF (02/24/20 11:38 AM) Mode of Delivery (Oxygen) Room air (02/24/20 2:11 PM) Room air (02/24/20 11:38 AM) Blood pressure sites Arm, left (02/24/20 2:11 PM) Arm, right (02/24/20 11:38 AM) Temperature Route Oral (02/24/20 11:38 AM) Social History Social History Type Response Smoking Status 10 or more cigarette s (1/2 pack or more)/day in last 30 days entered on: 01/25/19 Sex
--- OUTSIDE RECORDS SUMMARY | 2023-10-24 09:34 | XMS_ITS | Continuity of Care Document ---
Author Organization [facility] Address [address] [place] [address]- Care Team Providers Care Market Master Name Role Phone Girma ACE, Amy Wilson Primary Care Physician Encounter [facility] [place] Date(s): 12/24/20 - 01/23/[address] [address] Attending Physician: Admtr, Faisal Admitting Physician: Admtr, Ar8 Referring Physician: Admtr, [...] (gastroesophageal reflu x disease)(Confirmed) Active Hypertension(Confirmed) Active Social History Social History Type Response Smoking Status 10 or more cigarette s (1/2 pack or more)/day in last 30 days entered on: 01/25/19 Sex
--- OUTSIDE RECORDS SUMMARY | 2023-10-24 09:34 | XMS_ITS | Continuity of Care Document ---
Author Organization [facility] Address [address] [place] [address]- Care Team Providers Care Hot Blaster Name Role Phone Amy Rayo MD Primary Care Physician [phone] En[place] [facility] [place] Date(s): 11/17/20 - 03/03/[address] [address]- Discharge Disposition: A-D/C Home Attending Physician: Amy Rayo MD Admitting Physician: Amy Rayo MD Referring Physician: Amy Rayo MD Allergies, Adverse Reactions, Alerts Substance Reaction [...]
--- OUTSIDE RECORDS SUMMARY | 2023-10-24 09:34 | XMS_ITS | Continuity of Care Document ---
Author Organization [facility] Address [address] [place] [address]- Care Team Providers Care Store Director Name Role Phone Amy Rayo MD Primary Care Physician Encounter [facility] [place] Date(s): 11/09/20 - 02/23/[address] [address]- Discharge Disposition: A-D/C Home Attending Physician: Amy [...]
--- OUTSIDE RECORDS SUMMARY | 2023-10-24 09:34 | XMS_ITS | Continuity of Care Document ---
Author Organization [facility] Address [address] [place] [address]- Care Team Providers Care Hand Chain Maker Name Role Phone Francisco ESPINOSA, Paulina Vega Primary Care Physician [phone] Encounter [facility] [place] Date(s): 01/20/23 - 02/19/[address] [address]- Attending Physician: AdmFaisal hernandez Admitting Physician: AdmtrFaisal Referring Physician: Admtr, Ar8 Allergies, Adverse Reactions, [...] 10:54:00 EST, Aerosol, Route to Pharmacy Electronically, [id number], [facility], 155, cm, [...] AM, 0 Refills, Maintenance, 02/17/23 13:26:00 EST, [place], Partial fill upon patient request if the [...] on: 02/17/23 Sex Laboratory * Event Display: [employer] Pap Test Authored Date: Radiology * Event [...] VERIFY Event Display: Patient Education/Instruction Authored Date: [id number] [facility] Chemistry Associate Clinical Summary Person Information Name MARIO DE LA VEGA Age 42 Years 1970 12:00 AM PCP Angel Avitia MD PCP Reason for Visit: Allergy Info: Peanuts [...] primary care provider, you may find a [facility] provider by calling [facility] [employer] Link at [phone]. Patient Education Information Follow-up Details: Patient Education Material: 66988 Colposcopy Colposcopy is a procedure that gives [...] vaginal medications. ??? Avoid douching. ??? Take ioqn-yxf-einqvdt pain medications an hour or two before [...] hours. ??? If you have any discomfort, tftp-bbt-weiprhb pain medication can provide relief. ??? Ask [...] ??? Foul-smelling or unusual vaginal discharge. ?? 0897-6221 [place] [address]. All rights reserved. This information is not intended as a substitute for professional medical care. Always follow your healthcare professional's instructions. 14182 HPV and Genital Warts: Understanding Your Diagnosis [...] this vaccine is right for you. ?? 0541-5372 [facility], [address] [place] [address], [place] [address]. All rights reserved. This information is not intended as a substitute for professional medical care. Always follow your healthcare professional's instructions. Patient Care team information Care Team Personnel Name: Paulina Singh NP Position: [facility] PCO Associate Professional Member Role: PCP Address: Address: [address] [place] [address]- Care Team Related Persons Name: ESTEFANIA FISHMAN Name: NAV DE LA VEGA Address: home [address] [place] [address] Name: LENO DE LA VEGA
--- OUTSIDE RECORDS SUMMARY | 2023-10-24 09:35 | XMS_ITS | Continuity of Care Document ---
Author Organization [facility] Address [address] [place] [address]- Care Team Providers Care Tow Boat Captain Name Role Phone Francisco ESPINOSA, Paulina Vega Primary Care Physician Encounter [facility] [place] Date(s): 07/03/23 - 08/02/23 [facility] Adult [address] [place] [address]- Attending Physician: Admtr, Ar8 Admitting Physician: Admtr, [...] 10:54:00 EST, Aerosol, Route to Pharmacy Electronically, [id number], [facility], 155, cm, [...] or A7037 Tubing A7038 or A7039 Filters [id number] strap A7046 Humidifier Chamber A703... Start Date: [...] AM, 0 Refills, Maintenance, 02/17/23 13:26:00 EST, [place], Partial fill upon patient request if the [...] Team Personnel Name: Paulina Singh NP Position: [facility] PCO Associate Professional Member Role: PCP Address: Address: [address] [place] [address]- Care Team Related Persons Name: ESTEFANIA FISHMAN Address: home [address] [place] [address] Name: NAV DE LA VEGA Address: home [address] [place] [address] Name: LENO DE LA VEGA
--- OUTSIDE RECORDS SUMMARY | 2023-10-24 09:35 | XMS_ITS | Continuity of Care Document ---
Author Organization [facility] Thomas Address [address] [place] [address]- Care Team Providers Care Beauty Specialist Name Role Phone Francisco ESPINOSA, Paulina Vega Primary Care Physician [phone] Encounter [facility] [place] Date(s): 12/02/22 - 01/01/23 [facility] Adult [address] [place] [address]- Allergies, Adverse Reactions, Alerts Substance Reaction Severity [...] oldest [Reference Range]: 1 Height 155 cm (12/07/22 9:07 AM) Weight 87.2 kg (12/07/22 9:07 AM) Social History Social History Type Response Smoking Status 10 or more cigarette s (1/2 pack or more)/day in last 30 days; Other: 1pack per day, 40 years. 40 pack years; entered on: 12/14/22 Sex Patient Care team information Care Team Personnel Name: Paulina Singh NP Position: S PCO Associate Professional Member Role: PCP Address: Address: [address] [place] [address]- Care Team Related Persons Name: ESTEFANIA FISHMAN Name: NAV DE LA VEGA Address: home [address] [place] [address] Name: LENO DE LA VEGA
--- OUTSIDE RECORDS SUMMARY | 2023-10-24 09:35 | XMS_ITS | Continuity of Care Document ---
Author Organization [facility] Address [address] [place] [address]- Care Team Providers Care Director Content Marketing Name Role Phone Francisco ESPINOSA, Paulina Vega Primary Care Physician Encounter [facility] Date(s): 08/08/23 - 09/07/[address] [address] Allergies, Adverse Reactions, Alerts Substance Reaction Severity [...] 10:54:00 EST, Aerosol, Route to Pharmacy Electronically, [id number], [facility], 155, cm, [...] or A7037 Tubing A7038 or A7039 Filters [id number] strap A7046 Humidifier Chamber A703... Start Date: [...] AM, 0 Refills, Maintenance, 02/17/23 13:26:00 EST, [place], Partial fill upon patient request if the [...] Associate Professional Member Role: PCP Address: Address: [address] [place] [address]- Care Team Related Persons Name: ESTEFANIA FISHMAN Address: home [address] [place] [address] Name: NAV DE LA VEGA Address: home [address] [place] [address] Name: LENO DE LA VEGA
--- OUTSIDE RECORDS SUMMARY | 2023-10-24 09:35 | XMS_ITS | Continuity of Care Document ---
Author Organization [facility] Address [address] [place] [address]- Care Team Providers Care Poker Manager Name Role Phone Francisco ESPINOSA, Paulina Vega Primary Care Physician [place] [facility] [place](s): 01/09/23 - 02/08/23 [facility] Adult [address] [place] [address]- Allergies, Adverse Reactions, Alerts Substance Reaction Severity [...] 10:54:00 EST, Aerosol, Route to Pharmacy Electronically, [id number], [facility], 155, cm, [...] Maintenance, 11/07/22 15:08:00 EDT, Tablet, [facility], Partial fill upon patient request if the prescription is for a schedule II opioid drug., 155, cm, 11/07/22 13:56:00 EDT,... Start Date: 11/07/22 Status: Ordered loratadine 10 mg oral tablet 10 mg, 1, tablet, By Mouth, Daily, # 90 tablet, Refills 3, Tot. Refills 3, Maintenance, 11/07/22 15:10:00 EDT, Route to Pharmacy Electronically, [facility], Partial fill upon patient request [...] 1 Refills, Maintenance, 02/01/23 10:30:00EST, [facility], Partial fill upon patient request [...] Team Personnel Name: Paulina Singh NP Position: [facility] PCO Associate Professional Member Role: PCP Address: Address: [address] [place] [address]- Care Team Related Persons Name: ESTEFANIA FISHMAN Name: NAV DE LAV EGA Address: home [address] [place] [address] Name: LENO DE LA VEGA
--- OUTSIDE RECORDS SUMMARY | 2023-10-24 09:35 | XMS_ITS | Continuity of Care Document ---
Author Organization [facility] Address [address] [place] [address]- Care Team Providers Care Home Health Scheduler Name Role Phone Francisco ESPINOSA, Paulina Vega Primary Care Physician Encounter [facility] [place] Date(s): 02/17/23 - 03/19/23 [facility] [address] [place], [place] [address] Attending Physician: AdmFaisal hernandez Admitting Physician: Admtr, Ar8 Referring Physician: Admtr, [...] 10:54:00 EST, Aeros[place], Route to Pharmacy Electronically, [id number], [facility], 155, cm, [...] AM, 0 Refills, Maintenance, 02/17/23 13:26:00 EST, [place], Partial fill upon patient request if the [...] Team Personnel Name: Paulina Singh NP Position: [facility] PCO Associate Professional Member Role: PCP Address: Address: [address] [place] [address]- Care Team Related Persons Name: ESTEFANIA FISHMAN Name: NAV DE LA VEGA Address: home [address] [place] [address] Name: LENO DE LA VEGA
--- OUTSIDE RECORDS SUMMARY | 2023-10-24 09:35 | XMS_ITS | Continuity of Care Document ---
Author Organization [facility] Address [address] [place] [address]- Care Team Providers Care Metalizing Machine Operator Name Role Phone Francisco ESPINOSA, Paulina Vega Primary Care Physician [place] [facility] [place] 11/08/22 - 12/08/22 [facility] Adult [address] [place] [address]- Allergies, Adverse Reactions, Alerts Substance Reaction Severity [...] Professional Member Role: PCP Address: Address: [address] [place] [address]- Care Team Related Persons Name: ESTEFANIA FISHMAN Name: NAV DE LA VEGA Address: home [address] [place] [address] Name: LENO DE LA VEGA
--- OUTSIDE RECORDS SUMMARY | 2023-10-24 09:35 | XMS_ITS | Continuity of Care Document ---
Author Organization [facility] Address [address] [place] [address]- Care Team Providers Care Child Caregiver Private Home Name Role Phone Paulina Singh NP Primary Care Physician Encounter [facility] Date(s): 04/26/23 - 05/26/23 [facility] [employer] [facility] [address]th [address] [place], [place] [address] Allergies, Adverse Reactions, [...] 10:54:00 EST, Aerosol, Route to Pharmacy Electronically, [id number], [facility], 155, cm, [...] AM, 0 Refills, Maintenance, 02/17/23 13:26:00 EST, [place], Partial fill upon patient request if the [...] Personnel Name: Francisco ESPINOSA, Paulina Vega Position: [facility] PCO Associate Professional Member Role: PCP Address: Address: [address] [place] [address]- Care Team Related Persons Name: ESTEFANIA FISHMAN Name: NAV DE LA VEGA Address: home [address] [place] [address] Name: LENO DE LA VEGA
--- OUTSIDE RECORDS SUMMARY | 2023-10-24 09:35 | XMS_ITS | Continuity of Care Document ---
Author Organization [facility] Address [address] [place] [address]- Care Team Providers Care Kitman Name Role Phone Paulina Singh NP Primary Care Physician [place] [facility] [place] Date(s): 02/14/23 - 03/16/[address] [address] Allergies, Adverse Reactions, Alerts Substance Reaction Severity [...] 10:54:00 EST, Aeros[place], Route to Pharmacy Electronically, [id number], [facility], 155, cm, [...] AM, 0 Refills, Maintenance, 02/17/23 13:26:00 EST, [place], Partial fill upon patient request if the [...] Personnel Name: Francisco ESPINOSA, Paulina Vega Position: [facility] PCO Associate Professional Member Role: PCP Address: Address: [address] [place] [address]- Care Team Related Persons Name: ESTEFANIA FISHMAN Name: NVA DE LA VEGA Address: home [address] [place] [address] Name: LENO DE LA VEGA
--- OUTSIDE RECORDS SUMMARY | 2023-10-24 09:35 | XMS_ITS | Continuity of Care Document ---
Author Organization [facility] Thomas Address [address] [place] [address]- Care Team Providers Care Customer Solutions Coordinator Name Role Phone Francisco ESPINOSA, Paulina Vega Primary Care Physician Encounter [facility] Date(s): 01/13/23 - 02/12/23 [facility] Adult [address] [place] [address]- Allergies, Adverse Reactions, Alerts Substance Reaction Severity [...] 10:54:00 EST, Aerosol, Route to Pharmacy Electronically, [id number], [facility], 155, cm, [...] Maintenance, 11/07/22 15:08:00 EDT, Tablet, [facility], Partial fill upon patient request if the prescription is for a schedule II opioid drug., 155, cm, 11/07/22 13:56:00 EDT,... Start Date: 11/07/22 Status: Ordered loratadine 10 mg oral tablet 10 mg, 1, tablet, By Mouth, Daily, # 90 tablet, Refills 3, Tot. Refills 3, Maintenance, 11/07/22 15:10:00 EDT, Route to Pharmacy Electronically, [facility], Partial fill upon patient request [...] 1 Refills, Maintenance, 02/01/23 10:30:00EST, [facility], Partial fill upon patient request [...] Team Personnel Name: Paulina Singh NP Position: [facility] PCO Associate Professional Member Role: PCP Address: Address: [address] [place] [address]- Care Team Related Persons Name: ESTEFANIA FISHMAN Name: NAV DE LA VEGA Address: home [address] [place] [address] Name: LENO DE LA VEGA
--- OUTSIDE RECORDS SUMMARY | 2023-10-24 09:35 | XMS_ITS | Continuity of Care Document ---
Author Organization [facility] Antonio Thomas lt Address [address] [place] [address]- Care Team Providers Care Mail Machine Operator Name Role Phone Francisco ESPINOSA, Paulina Vega Primary Care Physician [phone] Encounter [facility] [place] Date(s): 09/25/23 - 10/02/23 [facility] Adult [address] [place] [address]- Encounter Diagnosis Swelling of eyelid(Discharge Diagnosis) - 09/25/23 Attending Physician: Kelton COLEMAN-Lorraine MIGUEL Allergies, Adverse Reactions, Alerts Substance Reaction Severity [...] 10:54:00 EST, Aerosol, Route to Pharmacy Electronically, [id number], [facility], 155, cm, [...] or A7037 Tubing A7038 or A7039 Filters [id number] strap A7046 Humidifier Chamber A703... Start Date: [...] AM, 0 Refills, Maintenance, 02/17/23 13:26:00 EST, [place], Partial fill upon patient request if the [...] comorbidity Confirmed Active Tobacco abuse Confirmed Active Diagnosis Diagnosis Type Effective Dates Health Status Cl inical Service Informant Swelling of eyelid Discharge Diagnosis 09/25/23 Vital Signs Most recent to oldest [Reference Range]: 1 Height 155 cm (09/25/23 9:00 AM) Social History Social History Type Response Smoking Status 10 or more cigarette s (1/2 pack or more)/day in last 30 days entered on: 02/17/23 Sex Patient Care team information Care Team Personnel Name: Francisco ESPINOSA, Paulina Vega Position: [facility] PCO Associate Professional Member Role: PCP Address: Address: [address] [place] [address]- Care Team Related Persons Name: ESTEFANIA FISHMAN Address: home [address] [place] [address] Name: NAV DE LA VEGA Address: home [address] [place] [address] Name: LENO DE LA VEGA
--- OUTSIDE RECORDS SUMMARY | 2023-10-24 09:35 | XMS_ITS | Continuity of Care Document ---
Author Organization [facility] Address [address] [place] [address]- Care Team Providers Care Vinegar Maker Name Role Phone Francisco ESPINOSA, Paulina Vega Primary Care Physician Encounter [facility] [place] Date(s): 07/03/23 - 07/10/23 [facility] Adult [address] [place] [address]- Encounter Diagnosis Viral illness(Discharge Diagnosis) - 07/03/23 Attending Physician: Lorraine Saucedo Allergies, Adverse Reactions, Alerts Substance Reaction Severity [...] 10:54:00 EST, Aerosol, Route to Pharmacy Electronically, [id number], [facility], 155, cm, [...] AM, 0 Refills, Maintenance, 02/17/23 13:26:00 EST, [place], Partial fill upon patient request if the [...] Dates Health Status Cl inical Service Informant Viral illness Discharge Diagnosis 07/03/23 Vital Signs Most recent to oldest [Reference Range]: 1 Height 155 cm (07/03/23 3:37 PM) Social History Social History Type Response Smoking Status 10 or more cigarette s (1/2 pack or more)/day in last 30 days entered on: 02/17/23 Sex Patient Care team information Care Team Personnel Name: Paulina Singh NP Position: S PCO Associate Professional Member Role: PCP Address: Address: [address] [place] [address]- Care Team Related Persons Name: ESTEFANIA FISHMAN Address: home [address] [place] [address] Name: NAV DE LA VEGA Address: home [address] [place] [address] Name: LENO DE LA VEGA
--- NOTE | 2023-10-24 09:37 | ED_ITS ---
HPI - General Adult General Chief complaint: Headache Stated complaint: Dizziness, headache Time Seen by Provider: 10/24/23 09:18 Source: patient and RN notes reviewed Mode of arrival: ambulatory Limitations: no limitations History of Present Illness ED Provider: Alisson Talavera PA-C [facility] narrative: This is a 53-year-old female, with a history of hypertension, who presents emergency department with complaints of headache, dizziness, and nausea since yesterday. Patient states that 2 nights ago she went to a concert, she awoke feeling as though she was ?hung over?. She states that she rested all day yesterday, only got up to make herself food. States that she has had this ongoing dizziness, which worsens with positional changes. She states that her symptoms feel as though the room is spinning around her. She states that the dizziness is constant, however waxes and wanes in severity. Worsens with positional changes. 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 No other complaints or concerns at this time. MD complaint: Headache, dizziness Onset (ago): day(s) Radiation: non-radiation Severity: mild Relieving factors: none Exacerbating factors: none Associated symptoms: denies other symptoms Treatments prior to arrival: none Related Data Previous Rx's ?Medication ?Instructions ?Recorded meclizine 25 mg tablet 25 mg PO TID #14 tabs 10/24/23 Allergies Allergy/AdvReac Type Severity Reaction Status Date / Time Peanut (Legumes) Allergy Flushing Verified 10/24/23 09:18 Review of Systems 2 Review of Systems: Yes all other systems are reviewed and are negative Constitutional: Constitutional: Reports as per [facility] Past Medical History Attestation statement: The following information was validated with the patient. Social History Social History Advance Directives: No Advance Directives Information Provided: Yes Physical Exam ED Vital Signs: Vital Signs - 24 hr 10/24/23 09:08 10/24/23 10:50 10/24/23 10:51 Temperature 98.0 F Pulse Rate 74 75 75 Respiratory Rate 15 Blood Pressure 128/78 107/61 114/57 L Pulse Oximetry Oxygen Delivery Method Room Air 10/24/23 10:54 10/24/23 12:00 Temperature 98.1 F Pulse Rate 84 72 Respiratory Rate Blood Pressure 118/75 123/64 Pulse Oximetry 96 Oxygen Delivery Method Room Air BMI result Body Mass Index 35.7 Const General: cooperative, comfortable and no acute distress Orientation/consciousness: patient oriented x3 Limitations: no limitations HENMT Head: Yes normal to inspection, Yes normocephalic and Yes atraumatic Ears: hearing grossly normal bilaterally General nose exam: Normal external nose present Face and sinus: Yes normal facial exam Mouth: Normal oral and palatal mucosa present, oropharynx normal and moist mucous membranes Throat: Yes posterior oropharynx normal Eyes General: appearance normal, both eyes and all related structures Eyelids: Yes eyelids normal Conjunctivae: conjunctivae normal Sclerae: sclerae normal Pupils: Equal, round and reactive pupils present EOM: EOMs intact bilaterally Neck Neck: Yes normal visual inspection, Yes full ROM and Yes no lymphadenopathy Lymphatic: no lymphadenopathy noted Chest Chest palpation & inspection: normal inspection of the chest Resp Effort & Inspection: normal respiratory effort and able to speak in complete sentences Auscultation: clear to auscultation bilaterally, no crackles, no rales, no rhonchi and no wheezes Cardio Rate: regular rate Rhythm: regular rhythm Heart sounds: S1 normal heart sound present and S2 normal heart sound present GI Inspection: Yes normal to inspection Skin General skin exam: no rashes or lesions noted Trauma: no lacerations or abrasions Wounds: no wounds Neuro General: patient oriented x3 and moves all extremities Cranial nerves: Yes CN's II-XII intact bilaterally and Yes Equal, round and reactive pupils present Cognition (Neuro): normal cognition Motor exam (neuro): 5/5 motor strength present throughout and Pronator motor function not present Coordination: [id number] test normal and swsk-np-[id number] test normal Romberg Test: Negative Doll's-Eye Reflex: Absent Extrem General: Yes normal to inspection Right upper extremity: normal to inspection Left upper extremity: normal to inspection Right lower extremity: normal to inspection Left lower extremity: normal to inspection NIH Stroke Scale Internal: Initial- Upon Arrival Time: 09:42 Level of Consciousness: Alert Level of Consciousness Questions: Answers both questions correctly Level of Consciousness Commands: Performs both tasks correctly Best Gaze: Normal Visual: No visual loss Facial Palsy: Normal Motor Arm (Right): No drift Motor Arm (Left): No drift Motor Leg (Right): No drift Motor Leg (Left): No drift Limb Ataxia: Absent Sensory: Normal Best Language: No aphasia Dysarthia: Normal Extinction and Inattention: No abnormality Score: 0 Course Reevaluation(s) Reevaluation #1: Patient re-evaluated after receiving meclizine, IV fluids. Her workup today was reassuring, electrolytes within normal limits. CBC within normal limits. CT head feeling no acute abnormalities. Discussed findings patient. Given strict return precautions. She is charge. No other complaints or concerns at this time. Medications Administered Discontinued Medications Generic Name Dose Route Start Last Admin Trade Name Gino PRN Reason Stop Dose Admin Sodium Chloride 1,000 mls @ 999 mls/hr 10/24/23 11:03 10/24/23 14:35 Ns IV 10/24/23 12:03 Infused .Q1H1M ONE Infusion Meclizine HCl 25 mg 10/24/23 11:03 10/24/23 12:06 Meclizine Hcl 25 Mg Tablet PO 10/24/23 11:04 25 mg ONCE ONE Administration Ondansetron HCl 4 mg 10/24/23 11:02 10/24/23 12:06 Ondansetron Hcl 4 Mg/2 Ml Vial IVPUSH 10/24/23 11:03 4 mg ONCE ONE Administration Medical Decision Making Medical Decision Making [facility] Narrative: This is a 53-year-old female, with a history of hypertension, who presents emergency department with complaints of dizziness, headaches, nausea since October 22. On arrival, vital signs within normal limits. She is nontoxic appearing, no neurologic focal deficits on examination. She has an NIH score of 0. Differential diagnoses include electrolyte derangement, ACS, orthostatic hypotension, sinusitis. Less likely CVA. . Plan: Labs, EKG, viral swabs, IV fluids Differential Diagnosis Differential Diagnoses: The differential diagnosis associated with the presentation includes See above Admission/Observation Consideration of admission/observation: Escalation of care including admission/observation considered Lab Data [facility] Lab Attestation statement: I reviewed the patient's lab results. See course comment 10/24/23 10:01 10/24/23 10:01 Labs: Lab Results 10/24/23 10/24/23 Range/Units 10:01 11:45 WBC 5.8 (4.8-10.8) X10*3/uL RBC 4.23 (4.20-5.50) X10*6/uL Hgb 14.0 (12.0-16.0) g/dl Hct 40.8 (37.0-47.0) % MCV 96.5 (80.0-98.0) fL MCH 33.1 H (27.0-33.0) pg MCHC 34.3 (31.0-35.0) g/dl RDW 12.0 (11.0-16.0) % Plt Count 226 (160-400) X10*3/uL MPV 9.5 (9.4-12.3) fL Immature Gran % (Auto) 0.5 H (0.0-0.4) % Neut % (Auto) 56.3 (45-73) % Lymph % (Auto) 33.4 (20-40) % [place] % (Auto) 7.4 (2-11) % Eos % (Auto) 1.9 (0-4) % Baso % (Auto) 0.5 (0-2) % Lymph # (Auto) 1.9 (1.2-4.9) X10*3/uL [place] # (Auto) 0.4 (0.1-1.2) X10*3/uL Eos # (Auto) 0.1 (0.0-0.4) X10*3/uL Baso # (Auto) 0.0 (0.0-0.2) X10*3/uL Abs Immat Gran (auto) 0.03 (0.00-0.03) X10*3/uL Absolute Neuts (auto) 3.3 (2.0-8.3) x10*3/uL Absolute Nucleated RBC 0.000 (0.0-0.012) X10*3/uL Nucleated RBC % (auto) 0.0 (0.0-0.2) /100WBC Sodium 142 (135-145) mmol/L Potassium 4.2 (3.3-5.1) mmol/L Chloride 104 (96-108) mmol/L Carbon Dioxide 27 (22-29) mmol/L Anion Gap 15 (12-20) BUN 11 (9-16) mg/dL Creatinine 0.75 (0.5-1.4) mg/dL Estim Creat Clear Calc 88.6 Estimated GFR > 60 Random Glucose 110 (60-115) mg/dL Calcium 9.3 (8.4-10.2) mg/dL Magnesium 2.1 (1.6-2.6) mg/dL Total Bilirubin 0.5 (0.0-1.0) mg/dL Direct Bilirubin 0.1 (0.0-0.5) mg/dL AST 20 (5-31) U/L ALT 28 (0-31) U/L Alkaline Phosphatase 80 (39-117) U/L Troponin I High Sens < 2.7 (<3.5-17.0) ng/L Total Protein 6.4 L (6.5-8.0) g/dL Albumin 3.9 (3.5-5.0) g/dL Lipase 27 (8-78) U/L Urine Color Yellow Urine Appearance Clear Urine pH 7.0 (5.0-9.0) Ur Specific [place] 1.010 (1.005-1.025) Urine Protein Negative (Neg-Trace) mg/dL Urine Glucose (UA) Negative (Negative) mg/dL Urine Ketones Negative (Negative) mg/dL Urine Blood Negative (Negative) Urine Nitrite Negative (Negative) Ur Leukocyte Esterase Negative (Negative) Influenza Type A (PCR) NEGATIVE (Negative) Influenza Type B (PCR) NEGATIVE (Negative) RSV RNA Qual (PCR) NEGATIVE (Negative) SARS-CoV-2 RNA (RT-PCR) NEGATIVE (Negative) Independent Interpretation I performed an independent interpretation of an: EKG Interpretation: EKG normal sinus rhythm at a ventricular rate of 64 beats minute ME interval 138, no ST elevation or depression. Radiology Impression Discussion of test interpretation with radiology: I have reviewed the radiologist's reading. Radiologist Impression: CT/CT head/brain wo IV con IMPRESSION: 1. Normal CT scan of the brain. 2. No intracranial hemorrhage or skull fracture is seen. 3. No evidence of space occupying lesion could be found. 4. The current plain CT scan of the brain shows no diagnostic evidence of acute cerebral infarction. Dictated By: Gagandeep Beatty Discharge Plan Discharge Clinical Impression: Vertigo Patient Disposition: Home, Self-Care Instructions: Vertigo (ED) Additional Instructions: You were seen in the emergency department due to dizziness. Your symptoms improved after receiving a medication called meclizine. Please drink plenty of fluids get plenty of rest. Your symptoms may also be attributed to recent discontinuation of gabapentin, please follow-up with your psychiatrist. Also follow-up with your primary care physician. If any new or worsening symptoms occur including but not limited to fevers, chills, chest pain, shortness of breath, please return for re-evaluation. Prescriptions: New meclizine 25 mg tablet 25 mg PO TID Qty: 14 0RF Interventions: ED Discharge Assessment Last Done: 10/24/23 14:54 Discharge Date/Time: 10/24/23 14:55 Print Language: Tristanian
[2023-10-24 10:07] LABS: MANUAL DIFF FLAG NO
[2023-10-24 10:08] LABS: Basophils Percent Auto 0.5 % (0-2); Eosinophils Absolute Auto 0.1 X10*3/uL (0.0-0.4); Eosinophils Percent Auto 1.9 % (0-4); Hematocrit 40.8 % (37.0-47.0); Imm Gran Abs Auto 0.03 X10*3/uL (0.00-0.03); Imm Gran Pct Auto 0.5 % (0.0-0.4); Lymphocytes Absolute Auto 1.9 X10*3/uL (1.2-4.9); Lymphocytes Percent Auto 33.4 % (20-40); Mean Corpuscular HGB Conc 34.3 g/dl (31.0-35.0); Mean Corpuscular Hemoglobin 33.1 pg (27.0-33.0); Mean Corpuscular Volume 96.5 fL (80.0-98.0); Mean Platelet Volume 9.5 fL (9.4-12.3); Monocytes Absolute Auto 0.4 X10*3/uL (0.1-1.2); Monocytes Percent Auto 7.4 % (2-11); Neutrophils Absolute Auto 3.3 x10*3/uL (2.0-8.3); Neutrophils Percent Auto 56.3 % (45-73); Platelet Count 226 X10*3/uL (160-400); Red Blood Count 4.23 X10*6/uL (4.20-5.50); White Blood Count 5.8 X10*3/uL (4.8-10.8)
[2023-10-24 10:24] LABS: Alanine Aminotransferase 28 U/L (0-31); Albumin Level 3.9 g/dL (3.5-5.0); Alkaline Phosphatase 80 U/L (39-117); Anion Gap 15 (12-20); Aspartate Amino Transferase 20 U/L (5-31); Bilirubin Direct 0.1 mg/dL (0.0-0.5); Bilirubin Total 0.5 mg/dL (0.0-1.0); Blood Urea Nitrogen 11 mg/dL (9-16); Calcium 9.3 mg/dL (8.4-10.2); Carbon Dioxide 27 mmol/L (22-29); Chloride 104 mmol/L (96-108); Creatinine Clr Calc Pharmacy 88.6; Estimated Glomerular Filt Rate > 60; Glucose Random 110 mg/dL (60-115); Lipase 27 U/L (8-78); Magnesium 2.1 mg/dL (1.6-2.6); Potassium 4.2 mmol/L (3.3-5.1); Sodium 142 mmol/L (135-145); Total Protein 6.4 g/dL (6.5-8.0)
[2023-10-24 10:36] LABS: Troponin-I High Sensitivity < 2.7 ng/L (<3.5-17.0)
[2023-10-24 10:47] LABS: Influenza A PCR NEGATIVE (Negative); Influenza B PCR NEGATIVE (Negative); Resp Syncy Virus RNA Qual PCR NEGATIVE (Negative); SARS COV2 PCR INHOUSE NEGATIVE (Negative)
[2023-10-24 10:50] VITALS: BP 107/61; PULSE 75
[2023-10-24 10:51] VITALS: BP 114/57; PULSE 75
[2023-10-24 10:54] VITALS: BP 118/75; PULSE 84
[2023-10-24 11:56] LABS: Appearance Urine Clear; Color Urine Yellow; Glucose Urine UA Negative (Negative); Leukocyte Esterase Urine Negative (Negative); Nitrite Urine Negative (Negative); Urine Blood Negative (Negative); Urine Ketones Negative (Negative); Urine Protein Negative (Neg-Trace)
[2023-10-24 12:00] VITALS: BP 123/64; PULSE 72; TEMP 36.7; O2SAT 96
[2023-10-24] MEDS: ondansetron HCL 4 MG/2 ML VIAL IVPUSH (12:06)
[2023-10-24] MEDS: Meclizine HCl 25 MG TABLET PO (12:06)
[2023-10-24] MEDS: 0.9 % Sodium Chloride 1,000 ML 999 ML IV (12:07)
[2023-10-24 14:54] VITALS: BP 125/80; PULSE 76; RESP 17; TEMP 36.6; O2SAT 98
== END 2023-10-24 14:55 | disposition home or self-care (01) ==
PROVIDERS: Physician Assistant Medical; Emergency Provider Emergency Medicine; PCP Nurse Practitioner Family
DX: R42 Dizziness and giddiness (principal); R51.9 Headache, unspecified; R11.0 Nausea; I10 Essential (primary) hypertension; Z03.818 Encounter for observation for suspected exposure to other biological agents ruled out
CPT/HCPCS: 0241U; 70450; 80048; 80076; 81003; 83690; 83735; 84484; 85025; 93005; 96361; 96374; 99284; J2405

== ENCOUNTER → 2023-10-24 09:33 | Outpatient (BNV) | payer BC, SELFPAY | PROVIDERS: Emergency Provider Emergency Medicine; PCP Nurse Practitioner Family; Visit Provider Internal Medicine Cardiovascular Disease | DX: R42 Dizziness and giddiness (principal) | CPT/HCPCS: 93010 ==

== ENCOUNTER 2024-10-21 10:45 | Outpatient (AMB) | payer OTHER, SELFPAY ==
--- NOTE | 2024-10-21 10:50 | A.OFFVIS_ITS ---
Vital Signs 10/21/24 10:58 Height 5 ft 2 in Weight 176 lb 5.917 oz BMI 32.3 BP 107/65 Blood Pressure Location Lt brachial Position Sitting Pulse 84 Intake Visit Reasons: POS Stool Test, GERD Intake Note: Monika presents in the office as a new patient for GERD and had a POS colo test. CC: She states that she has GERD and states she may have an ulcer. She is guessing. Consulting Nurse Required: No Allergies Peanut and Related Legumes (Peanut (Legumes)) Allergy (Verified 10/21/24 10:59) Flushing HPI Comments Details: 54 y.o F with PMH of who is here for positive FIT test. Reports back in May had stomach pain and cramping x few days. Assoc with tarry stools, this was in the context of taking peptobismol. PCP ordered FIT which was POSITIVE. Rare nsaids use. 1 PPD x 42 years. Drinks etOH 4-5 drinks of vodka. Takes pantoprazole 40 x years. Last colo was < 10 years ago. Done at [facility]. No fam hx of CRC, IBD. [facility] Surgical History (Updated 10/21/24 @ 10:58 by ANAI Fong) Hx of colonoscopy History of esophagogastroduodenoscopy (EGD) Hx of knee surgery Review of Systems Const All systems reviewed & are unremarkable except as noted in HPI and below Physical Exam Exam Exam: No apparent distress Nonicteric Abdomen soft, nondistended Alert and oriented x3, normal gait Vital Signs: Last Vital Signs Pulse 84 10/21/24 10:58 BP 107/65 10/21/24 10:58 BMI result Body Mass Index 32.3 Assessment & Plan Assessment & Plan (1) Positive fecal immunochemical test: Code(s): R19.5 - Other fecal abnormalities Category: Medical (2) Alcohol use disorder: Code(s): F10.90 - Alcohol use, unspecified, uncomplicated Category: Medical Plan 1. Positive FIT Reviewed with the patient that fit test typically not recommended while patient is having active GI symptoms. However, positive test will need to be followed up with a colonoscopy for further evaluation. We will also check updated CBC and iron labs to rule out anemia Plan: - labs as below - colonoscopy to be booked. PEG prep prescribed and instructions reviewed with the patient. 2. Alcohol use disorder Counseled patient that drinking more than recommended safe limit for women. Advised to cut down by at least 50%. Plan: -will check LFTs in platelets to calculate fib 4 -if LFTs significantly elevated, will also order an ultrasound Follow-up after procedure Orders: Orders Ferritin Today R19.5 - Other fecal abnormalities IRON PROFILE Today R19.5 - Other fecal abnormalities Complete Blood Count no Diff Today R19.5 - Other fecal abnormalities Comprehensive Met. Panel Today R19.5 - Other fecal abnormalities Medications: New peg 3350-electrolytes 236-22.74-6.74 -5.86 gram (Golytely) as per split prep instructions, until fecal effluent is clear 240 mL PO Q10M 4,000 mL 0RF colonoscopy Coding Level of Care Code New Pt Level 4 (88405) Diagnoses Positive fecal immunochemical test R19.5 Alcohol use disorder F10.90
[2024-10-21 10:58] VITALS: BP 107/65; PULSE 84; BMI 32.3
--- OUTSIDE RECORDS SUMMARY | 2024-10-21 11:39 | XMS_ITS | Clinical Summary ---
Author Organization [facility] Address [address] [place] [address] Care Team Providers Care Recruiting Manager Name Role Phone Paulina Singh Primary Care Provider Medications amLODIPine (NORVASC) 10 mg tablet Take 10 mg by mouth. 01/04/2024 Active escitalopram (LEXAPRO) 20 mg tablet SMARTSI Tablet(s) By Mouth Daily 12/27/2023 Active lamoTRIgine (LaMICtal) 25 mg tablet SMARTSI Tablet(s) By Mouth Twice Daily 12/27/2023 Active loratadine (CLARITIN) 10 mg tablet Take 10 mg by mouth. 12/05/[address] (PROTONIX) 40 mg tablet Take 40 mg by mouth. 11/28/2023 Active levothyroxine (SYNTHROID, LEVOTHROID) 25 mcg tablet Take 25 mcg by mouth. 01/04/2024 Active traZODone (DESYREL) 50 mg tablet SMARTSI Tablet(s) By Mouth Every Night PRN 12/27/2023 Active Active Problems No known active problems Social History Tobacco Use Types Packs/Day Years Used Date Smoking Tobacco: Never Assessed Comments Unknown Sex and Gender Information Value Date Recorded Sex Assigned at Female 10/12/2023 10:25 AM EDT Legal Sex Female 10:23 AM EDT Gender Identity Female 01/09/2024 10:02 AM EDT Sexual Orientation Straight 01/09/2024 10 :02 AM EDT Plan of Treatment Health Maintenance Due Date Last Done Comments Cervical Cancer Screening 1969 Cologuard 1969 Colon Cancer Screening 1969 Colonoscopy 1969 FOBT / Fit Test 1969 HIV Screening 1969 HPV and Pap Smear 1969 Hepatitis C Screening 1969 Pap Smear 1969 Sigmoidoscopy 1969 Hepatitis B Vaccines (1 of 3 - 19+ 3-dose series) 1988 Mammogram 2009 Pneumococcal Vaccine: 50+ Ye ars (2 of 2 - PCV) 2019 10/08/2012 Zoster Vaccines (1 of 2) 2019 DTaP,Tdap,and Td Vaccines (2 - Td or Tdap) 10/08/2022 10/08/2012, 03/20/1999 COVID-19 Vaccine (4 - 2023-2 5 season) 2023 01/14/2021, 07/10/2020, 06/17/2020 Alcohol/Substance Use Screening 03/20/2024 Depression Screening and Follow-Up 03/20/2024 Social Drivers of Health Deborah ual Screening 03/20/2024 Influenza Vaccine (#1) 2024 2, 11/29/2020, 01/05/2020, Additional history exists RSV Vaccine (60+ years old a nd patients) (1 - 1-dose 75+ series) 2044 Insurance [facility] HMO/POS Care Teams Recruiting Manager Relationship Specialty Start Date End Date FranciscoPaulina [address] [place], [place] [phone] PCP - General 10/12/23
--- OUTSIDE RECORDS SUMMARY | 2024-10-21 11:39 | XMS_ITS | Encounter Summary ---
Author Organization [employer] Address [address] [facility] [address] [place] [address] Care Team Providers Care Shell Machine Operator Name Role Phone Unavailable Primary Care Provider Unavailabl e Encounter Details Date Type Department Care Team (Latest Contact Info) Description 06/04/2018 Abstract [facility] Dental, Provider, DDS Social History Tobacco Use Types Packs/Day Years Used Date Smoking Tobacco: Never Assessed Comments Unknown Sex and Gender Information Value Date Recorded Sex Assigned at Female 01/17/2022 10:18 AM EDT Legal Sex Female 10:18 AM EDT Gender Identity Choose not to disclose 10:18 AM EDT Sexual Orientation Choose not to disclose 2021 10:18 AM EDT documented as of this encounter Plan of Treatment Not on file documented as of this encounter Visit Diagnoses Not on filedocumented in this encounter
--- OUTSIDE RECORDS SUMMARY | 2024-10-21 11:39 | XMS_ITS ---
Author Name [facility] Organization Unknown Care Team Organization Name Specialty Phone Email Start Date End Da cholo [facility] Maurilio Sutton Primary Care 01/25/202210/18
== END 2024-10-21 12:20 | disposition home or self-care (01) ==
LOC: HO.HGI 10:46
PROVIDERS: Visit Provider Internal Medicine
DX: R19.5 Other fecal abnormalities (principal); F10.90 Alcohol use, unspecified, uncomplicated
CPT/HCPCS: 99204

== ENCOUNTER 2024-10-21 10:45 | Outpatient (REF) | payer OTHER, SELFPAY ==
[2024-10-21 12:15] LABS: Hematocrit 43.8 % (37.0-47.0); Hemoglobin 14.6 g/dl (12.0-16.0); Mean Corpuscular HGB Conc 33.3 g/dl (31.0-35.0); Mean Corpuscular Hemoglobin 33.0 pg (27.0-33.0); Mean Corpuscular Volume 98.9 fL (80.0-98.0); NRBC Abs Auto 0.000 X10*3/uL (0.0-0.012); NRBC Pct Auto 0.0 /100WBC (0.0-0.2); Platelet Count 226 X10*3/uL (160-400); Red Blood Count 4.43 X10*6/uL (4.20-5.50); White Blood Count 6.3 X10*3/uL (4.8-10.8)
[2024-10-21 12:42] LABS: Alanine Aminotransferase 32 U/L (0-31); Albumin Level 4.3 g/dL (3.5-5.0); Alkaline Phosphatase 88 U/L (39-117); Anion Gap 11 (12-20); Aspartate Amino Transferase 22 U/L (5-31); Blood Urea Nitrogen 17 mg/dL (9-16); Calcium 9.2 mg/dL (8.4-10.2); Carbon Dioxide 27 mmol/L (22-29); Chloride 107 mmol/L (96-108); Estimated Glomerular Filt Rate > 60; Iron 160 mcg/dL (30-160); Percent Iron Saturation 48 % (15-50); Potassium 4.0 mmol/L (3.3-5.1); Sodium 141 mmol/L (135-145); Total Iron Binding Capacity 335 mcg/dL (228-428); Total Protein 6.9 g/dL (6.5-8.0); Unsaturated Iron Binding 175 ug/dL
[2024-10-21 12:57] LABS: Ferritin 47 ng/mL (10-250)
== END 2024-10-21 10:46 | disposition home or self-care (01) ==
LOC: HO.LAB 10:45
PROVIDERS: PCP Internal Medicine; Visit Provider Internal Medicine
DX: R19.5 Other fecal abnormalities (principal); F10.90 Alcohol use, unspecified, uncomplicated
CPT/HCPCS: 36415; 80053; 82728; 83540; 85027

== ENCOUNTER 2025-01-13 07:49 | Outpatient (REF) | payer OTHER, SELFPAY ==
--- NOTE | ~2025-01-13 | US_ITS ---
CLINICAL HISTORY: R79.89 - Other specified abnormal findings of blood chemistry US abdomen complete Comparison: None provided Findings: The visualized pancreas is normal, distal body and tail are obscured by bowel gas. The visualized aorta and inferior vena cava are normal caliber. The liver is normal in size, right lobe length is 15.7 cm. Moderately increased echogenicity of the liver parenchyma, no focal lesion is seen. No intrahepatic bile duct dilatation. The common duct is 5 mm in diameter. 2 cm mobile gallstone, no gallbladder wall thickening, negative sonographic Jasso's sign. The main portal vein is patent with antegrade flow. The right kidney is normal, 10.5 cm in length. The left kidney is normal, 11.2 cm in length. The spleen is normal, 9.2 cm in length. No free fluid in the abdomen. Impression: 1. Cholelithiasis without acute inflammation. 2. Echogenic liver parenchyma, non-specific, commonly seen in the setting of steatosis or chronic hepatitis. This document has been electronically signed by: Angélica Kilgore MD on 01/13/2025 16:49:36
--- OUTSIDE RECORDS SUMMARY | 2025-01-13 07:52 | XMS_ITS | Encounter Summary ---
Author Organization [employer] Address [address] [facility] [address] [place] [address] Care Team Providers Care Cooker Chip Name Role Phone Unavailable Primary Care Provider Unavailabl e Encounter Details Date Type Department Care Team (Latest Contact Info) Description 06/04/2018 Abstract [facility] Dental, Provider, DDS Social History Tobacco [...]
--- OUTSIDE RECORDS SUMMARY | 2025-01-13 07:52 | XMS_ITS | Clinical Summary ---
Author Organization [facility] Address [address] [place] [address] Care Team Providers Care Crowd Controller Name Role Phone Paulina Singh Primary Care Provider [phone] Medications amLODIPine (NORVASC) 10 mg tablet Take [...] - Td or Tdap) 10/08/2022 10/08/2012, 03/20/1999 Alcohol/Substance Use Screening 03/20/2024 Depression Screening and Follow-Up 03/20/2024 Social Drivers of Health Deborah ual Screening 03/20/2024 COVID-19 Vaccine (4 - 2024-2 6 season) 2024 01/14/2021, 07/10/2020, 06/17/2020 Influenza Vaccine (#1) 2024 2, 11/29/2020, 01/05/2020, Additional history exists RSV Vaccine (60+ years old a nd patients) (1 - 1-dose 75+ series) 2044 Insurance [facility] HMO/POS Care Teams Crowd Controller Relationship Specialty Start Date End Date FranciscoPaulina [address] [place], [place] [phone] PCP - General 10/12/23
--- OUTSIDE RECORDS SUMMARY | 2025-01-13 07:52 | XMS_ITS | Encounter Summary ---
Author Organization [employer] Address [address] [facility] [address] [place] [address] Care Team Providers Care Heel Pricker Name Role Phone Unavailable Primary Care Provider Unavailabl e Encounter Details Date Type Department Care Team (Latest Contact Info) Description 08/21/2020 Abstract [facility] Dental, Provider, DDS Social History Tobacco [...]
--- OUTSIDE RECORDS SUMMARY | 2025-01-13 07:52 | XMS_ITS | Clinical Summary ---
Author Organization [employer] Address [address] [facility] [address] [place] [address] Care Team Providers Care Zipper Sewing Machine Operator Name Role Phone Unavailable Primary Care Provider Unavailabl e Social History Tobacco Use Types Packs/Day Years Used Date Smoking Tobacco: Never Assessed Comments Unknown Sex and Gender Information Value Date Recorded Sex Assigned at Female 01/17/2022 10:18 AM EDT Legal Sex Female 10:18 AM EDT Gender Identity Choose not to disclose 10:18 AM EDT Sexual Orientation Choose not to disclose 2021 10:18 AM EDT Plan of Treatment Health Maintenance Due Date Last Done Comments CT Colonography 1969 Colonoscopy 1969 Colorectal Cancer Screening 1969 Depression Screening 1969 FIT DNA/Cologuard 1969 FIT 1969 FOBT 1969 Sigmoidoscopy 1969 Disability Screening 1969 Alcohol/Substance Use Screening 1981 Tobacco Screening 1981 Hepatitis B Vaccines (1 of 3 - 19+ 3-dose series) 1988 Pap Smear 1990 Cervical Cancer Screening 1999 HPV/Cotest 1999 DTaP/Tdap/Td Vaccines (1 - Tdap) 03/21/1999 03/20/19 00 Mammogram 2009 Pneumococcal Vaccine: 50+ Ye ars (1 of 1 - PCV) 2019 Zoster Vaccines (1 of 2) 2019 COVID-19 Vaccine (1 - 2023-2 5 season) 2024 Influenza Vaccine (#1) 2024 02/08/2012 RSV Patients and Pa tients Aged 60 years or older (1 - 1-dose 75+ series) 2044 HIB Vaccines Aged Out No longer eligi ble based on patient's age to complete this topic HPV Vaccines Aged Out No longer eligi ble based on patient's age to complete this topic Hepatitis A Vaccines Aged Out No long er eligible based on patient's age to complete this topic IPV Vaccines Aged Out No longer eligi ble based on patient's age to complete this topic Meningococcal B Vaccine Aged Out No l onger eligible based on patient's age to complete this topic Meningococcal Vaccine Aged Out No jeana megan eligible based on patient's age to complete this topic RSV under 20 months Aged Out No longe r eligible based on patient's age to complete this topic Rotavirus Vaccines Aged Out No longer eligible based on patient's age to complete this topic
--- OUTSIDE RECORDS SUMMARY | 2025-01-13 07:52 | XMS_ITS | Data Portability ---
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 I reviewed conservative measures with the patient today. I recommended physical therapy and counterforce braces for both elbows. Follow-up 3 months time for recheck, sooner if required Not available 05/17/2024 15:40:33 08/22/2024 08/22/2024 Assessment: Patient presents with signs and symptoms that are consistent with lateral epicondylitis including localized pain, positive Cozen's test, and discomfort with passive wrist flexion. Plan: Continued PT is recommended at 2x/week for the next 6 weeks to facilitate strength gains, decrease pain, and increase participation in functional activities. [email or web address] Not available 08/23/2024 08:14:28 08/28/2024 08/28/2024 54-year-old ambidextrous female presents today for follow-up evaluation for bilateral lateral epicondylitis with improvements on the left, continued significant pain on the right. I encouraged her to continue with her physical therapy as well as use of a counterforce brace. I offered her a cortisone injection on the right side as she reported significant pain and she wished to proceed. I reviewed potential for surgical intervention but recommended to exhaust conservative measures first. Follow-up in 3 months time for recheck, sooner if required Not available 08/28/2024 16:14:57 Plan of Treatment Reminders Order Date Submit Date Provider Last Modified By Organization Details Last Modified Time Details Appointments None recorded. Lab None recorded. Referral physical therapist referral - DX: BILATERAL LATERAL EPICONDYLIT IS EVAL AND TX: ROM AND ECCENTRIC EXERCISES 2-3 times/week 4-6 weeks 2024 025 [email or web address] Not available 10:23:00 Procedures None recorded. Surgeries None recorded. Imaging XR, elbow, 2 view - rm 119 2v lauryn elbow 2024 025 [email or web address] [facility] [place] [facility], [address], [address], [place], [address], 19:37:28 Medication Orders None recorded. Patient TargetsNo targets recorded. Patient InstructionsNo instructions recorded. Reason for Referral Physical Therapist Referral for Bilateral elbow tendinitis DX: BILATERAL LATERAL EPICONDYLITIS EVAL AND TX: ROM AND ECCENTRIC EXERCISES2-3 times/week4-6 weeks Referring Physician: Munir Guevara, Orthopedic Surgery, Encounter Date: 05/17/2024 Results Created Date Observation Date Name Description Value Unit Range Abnormal Flag Note LastModifiedBy Organization Detail LastModifiedTime 05/17/1905/17/2024 XR, elbow , 2 view [email or web address] ?Encry pted=s hAaTro YD8dLq bEUv6g %2BXZw aYqtaq 0bqfl% 2Fg9IQ a4ajBk vP9nXo QUaueC m3YtLR FvZlgJ JJ8mAn HZtai3 3g4746 AC0Kqb XuFUaG hKiQtr MwF INTERFACE [facility] [address], [place], [address], 05/17/2024 15:19:13 05/17/19 25 05/17/2024 XR, elbow , 2 view [email or web address]:/ [email or web address] ?Encry pted=s hAaTro YD8dLq bEUv6g %2BXZw aYqtaq 0bqfl% 2Fg9IQ a4ajBk vP9nXo QUaueC m3YtLR FvZlgJ JJ8mAn HZtai3 0b0657 AC0Kqb XuFUaG hKiQtr MwF INTERFACE [facility] [address], [place], [address], 05/17/2024 15:19:15 Result Notes Documentation Provider Name and Address Organization Details Recorded Time Xr, Elbow, 2 View : [email or web address] Encrypted=fxJdYotON8iBdfN Uv6g%7MSMvaHgsgl5acdj%2Fg 5AEa8zxQluH1nUxLJqygEa2Dn CJIxGvrIWK4oCzCZdse78s332 8JX9SjvRpUCuUrFwNqmZzE Not Available [facility] 05/17/2024 15:19: 13 Xr, Elbow, 2 View : [email or web address] Encrypted=fjNfCcmKW4fCuzA Uv6g%9NPYioEhvlx7awsq%2Fg 9ESv9rxOweW8fQcJXctvOz7Ff NCAbBvuFVU6jStJQhlt78s321 0SY1HhqWzLUtOnYkCwiVpO Not Available [facility] 05/17/2024 15:19: 15 Problems Name Problem SNOMED Code Status Onset Date Resolution Date Notes Provider Name and Address Organization Details Recorded Time Pain of elbow region 63164399 Active 2024 Munir Guevara PA-C [address], [place], [address], [facility] 12:45:41 Bilateral elbow tendinitis 0861917841358 9102 Active 2024 Munir Guevara PA-C [address], [place], [address], [facility] 15:40:39 Problem Notes None recorded. Procedures Surgical History Date Name Laterality Status Provider Name and Address Organization Details Recorded Time 08/29/19 25 JZCelestone Lat Epi completed Munir Guevara PA-C [address] [facility], [place], [address], [facility] 08/28/2024 16:14:27 08/23/19 25 [address]10 Therapeutic Exercise (1:1) completed AMANDA CESPEDES DPT [address] [facility], [place], [address], [facility] 08/23/2024 08:13:22 08/23/19 25 44392: Low complexity PT Eval completed AMANDA CESPEDES DPT [address] [facility], [place], [address], [facility] 08/23/2024 08:13:26 06/07/19 25 Lateral Epicondylitis Celestone 1cc Injection, Bilateral completed Carly Baires PA-C [address] [facility], [place], [address], [facility] 07/01/2024 09:25:22 Imaging Results None recorded. Procedure Notes None recorded. Medical Equipment None Reported. Allergies Allergen ID Allergen Name Allergen Category Reaction Reaction Severity Criticality Documentation Date Start Date Code Code System Note Provider Name and Address Organization Details Recorded Time 15064 peanut allergeni c extract food,medi cation Not available Not available Not available 05/22/20232021 55344 8 RxNorm Not Available [facility] 11:09:28 Medications Name Sig Start Date Stop Date Status Note LastModified by Organization Details LastModified Time trazodone 50 mg tablet TAKE 1 TABLET BY MOUTH AT BEDTIME NEEDED active Not Available Not Available No t Available benzonatate 200 mg capsule TAKE ONE CAPSULE BY MOUTH THREE TIMES A DAY FOR 14 DAYS NEEDED FOR COUGH 05/17 completed Not Available Not Available Not Available prednisone 20 mg tablet TAKE TWO TABLETS BY MOUTH EVERY DAY FOR 5 DAYS WITH FOOD OR MILK 05/17 completed Not Available Not Available Not Available triamcinolo ne acetonide 0.1 % topical cream APPLY TO LEFT EAR AND BELOW LEFT EYE TWICE DAILY AND THEN WASH HANDS 05/17 completed Not Available Not Available Not Available amoxicillin 500 mg tablet TAKE 4 TABLETS BY MOUTH 1 HOUR BEFORE APPOINTME NT active Not Available Not Available No t Available levothyroxi ne 25 mcg tablet TAKE 1 TABLET BY MOUTH ONCE DAILY active Not Available Not Available No t Available lamotrigine 25 mg tablet TAKE 2 TABLETS BY MOUTH TWICE DAILY active Not Available Not Available No t Available meclizine 25 mg tablet TAKE ONE TABLET BY MOUTH THREE TIMES A DAY 06/06 completed Not Available Not Available Not Available amlodipine 10 mg tablet TAKE 1 TABLET BY MOUTH ONCE DAILY active Not Available Not Available No t Available benzonatate 100 mg capsule TAKE ONE CAPSULE BY MOUTH THREE TIMES A DAY FOR 7 DAYS NEEDED FOR COUGH 05/17 completed Not Available Not Available Not Available doxycycline monohydrate 100 mg capsule TAKE ONE CAPSULE BY MOUTH TWICE A DAY FOR 7 DAYS 05/17 completed Not Available Not Available Not Available pantoprazol e 40 mg tablet,shawn yed release TAKE 1 TABLET BY MOUTH DAILY active Not Available Not Available No t Available gabapentin 300 mg capsule TAKE ONE CAPSULE BY MOUTH THREE TIMES A DAY 05/17 completed Not Available Not Available Not Available cephalexin 500 mg tablet TAKE 1 TABLET BY MOUTH FOUR TIMES DAILY FOR 5 DAYS active Not Available Not Available No t Available albuterol sulfate HFA 90 mcg/actuati on aerosol inhaler INHALE TWO PUFFS FOUR TIMES PER DAY NEEDED FOR WHEEZING active Not Available Not Available No t Available clindamycin phosphate 1 % topical solution APPLY ONE APPLICATI ON EXTERNAL TWICE A DAY 06/06 completed Not Available Not Available Not Available escitalopra m 20 mg tablet TAKE 1 TABLET BY MOUTH DAILY active Not Available Not Available No t Available Allergy Relief (loratadine ) 10 mg tablet TAKE ONE TABLET BY MOUTH EVERY DAY 06/06 completed Not Available Not Available Not Available oxycodone HCl-oxycodo ne-ASA as directed 1 Tab po Q 4-6 hrs prn pain. DO NOT DRIVE WHILE TAKING THIS MEDICATIO N 05/17 completed Statu s: 'Curr ent'; Not Available Not Available Not Available nicotine (polacrilex ) 2 mg buccal mini lozenge TAKE ONE LOZENGE BY MOUTH EVERY 2 HOURS 06/06 completed Not Available Not Available Not Available Vitals Date Recorded Body height Body mass index (BMI) Body weight Provider Name and Address Organization Details Last Updated DateTime 05/17/2024 154.94 cm 36.7 kg/m2 27698.92 g Isaac Andino [facility] 05/17/2024 15:06:03 Date Recorded Body height Body mass index (BMI) Body weight Provider Name and Address Organization Details Last Updated DateTime 06/06/2024 154.94 cm 36.7 kg/m2 92075.92 g Adam ospina [facility] 06/06/2024 15:48:29 Date Recorded Body height Body mass index (BMI) Body weight Provider Name and Address Organization Details Last Updated DateTime 08/28/2024 154.94 cm 36.7 kg/m2 92008.92 g FEDE ESPINO [facility] 08/28/2024 15:42:54 Social History None recorded. Functional Status None recorded. Mental Status None recorded. Family History Nothing Reported. Medical History No medical history recorded. Gynecological HistoryNo gynecological history recorded. Obstetrics History GPAL:G 0 P 0 0 0 0 Past Encounters Encounter ID Performer Location Encounter Start Date Encounter Closed Date Diagnosis/Indication Diagnosis SNOMED-CT Code Diagnosis ICD10 Code Diagnosis IMO Codes Diagnosis Note [id number] [facility] [address] [place] [address] 05/17/2024 14:53:49 06/02/2024 19:37:28 Pain of elbow region 81411913 M25.521 M25.522 48303839 Bilateral elbow tendinitis 3727866540 2112127 M77.8 35903600 The patient is ambulatory , but has weakness and/or instabilit y of their extremity which requires stabilizat ion from this semi-rigid /rigid orthosis to improve their function. Verbal and written instructio ns for their use and applicatio n of this item were given. patient was instructed that should the brace result in increased pain, decreased sensation, increased swelling or an overall worsening of their medical condition, to please contact our office immediatel y. [id number] [facility] [address] [place] [address] 06/06/2024 15:43:45 07/01/2024 11:07:34 Bilateral elbow tendinitis 2439431573 8222982 M77.8 [id number] [id number] AMANDA CESPEDES, DPMin [facility] [address] [place] [address] 08/22/2024 16:35:15 08/22/2024 17:23:02 Right lateral elbow tendinopathy 8025832088 18485 M77.11 [id number] [facility] [address] [address] 08/28/2024 15:37:51 09/12/2024 12:18:48 Bilateral elbow tendinitis 5453643014 7718380 M77.8 [id number] Health Concerns Section Related Observation LastModified by Organization Detai ls LastModified Time None Recorded Concern Status LastModified by Organization Details LastModified Time None Recorded Advance Directives Directive None Recorded Payers Insurance Date Sequence Insurance Name Policy Number Policy Stephens Covered Member ID Stephens Member ID Guarantor Name 09/08/2024 1 [facility] Monika Ramos [id number] Monika Ramos Notes Date Note Type Note Provider Name and Address Organization Details Recorded Time 05/17/2024 text/html ROS as noted in the HPI I am seeing this patient under the supervision of Dr. Garrett who was available but who did not see the patient Chief Complaint: New evaluation for bilateral elbow pain HPI: 54-year-old ambidextrous female presents today with bilateral lateral sided elbow pain. Left side began about a year ago, right side began little over a week ago. It worsens with lifting, and repetitive type motion. No injury at the onset. She has tried a counterforce brace in the past. Presents today for evaluation Munir Guevara PA-C [address], [place], [address], [facility] 05/17/2024 15:40:51 06/06/2024 text/html ROS as noted in the HPI I am seeing this patient under the supervision of Dr. Garrett who was available but who did not see the patient Chief Complaint: Recheck bilateral elbow pain HPI: 54-year-old ambidextrous female presents today with bilateral lateral sided elbow pain. Left side began about a year ago, right side began about a month ago. It worsens with lifting, and repetitive type motion. No injury at the onset. She has tried a counterforce brace in the past. Presents today for evaluation. Right side is currently worse. MSK: examination of the bilateral elbow, forearm, wrist, and digits- inspection:---- skin- intact---- edema- none---- ecchymosis- none---- deformity- none- ROM:---- Full with pain reported with resisted wrist extension- Palpation:---- tenderness-lateral epicondylar tenderness noted---- mass- none- Laxity:----none- Special tests:---- n/aNeurologic:-arnold r function: strength is full- sensation: intact to moving light touch Vascular:- capillary refill less than 3 sec X-rays ordered, obtained and reviewed at [facility]: 3 views bilateral elbows demonstrate no significant arthritic change, and some slight enthesophyte formation noted of the lateral epicondylar region. 54-year-old ambidextrous female presents today with findings most consistent with bilateral lateral epicondylitis. I reviewed conservative measures with the patient today. I recommended physical therapy and counterforce braces for both elbows. She is here requesting a cortisone injection for the bilateral elbows.Follow up as scheduled. __ Carly Baires PA-C [address], [place], [address], [facility] 07/01/2024 09:25:34 08/22/2024 text/html Patient is 54 year old female presenting today reporting localized pain over the lateral aspect of their elbow. Reports that pain is worse with gripping, lifting, and when performing repetitive activities with their wrist/arm. Has no numbness and tingling in elbow. 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 Functional limitations at this time include difficulty lifting, gripping objects, and performing functional ADL's due to pain. Patient goal is to be able to work without pain. AMANDA CESPEDES DPT [address], [place], [address], [facility] 08/23/2024 08:15:11 08/28/2024 text/html ROS as noted in the HPI I am seeing this patient under the supervision of Dr. Berry who was available but who did not see the patient Chief Complaint: follow-up evaluation for bilateral lateral epicondylitis HPI: 54-year-old ambidextrous female presents today for follow-up evaluation for bilateral lateral epicondylitis. She was previously referred to physical therapy. She has tried a counterforce brace. She also received bilateral cortisone injections into both elbows by another provider. She reports the left sided injection helped significantly, her right sided injection did not seem to help with her pain. She reports continued lateral sided elbow pain right side significantly worse than left. She is just started therapy about a week ago. Munir Guevara PA-C [address], [place], [address], [facility] 08/28/2024 16:15:14 OBGyn Episode No OBEpisode recorded.
== END 2025-01-13 07:50 | disposition home or self-care (01) ==
LOC: HO.US 07:49
PROVIDERS: PCP Internal Medicine; Visit Provider Internal Medicine
DX: R79.89 Other specified abnormal findings of blood chemistry (principal)
CPT/HCPCS: 76700

== ENCOUNTER → 2025-01-13 07:51 | Outpatient (BNV) | payer OTHER, SELFPAY | PROVIDERS: PCP Internal Medicine; Visit Provider Radiology Diagnostic Radiology | DX: K80.20 Calculus of gallbladder without cholecystitis without obstruction (principal) | CPT/HCPCS: 76700 ==